=== PATIENT | male | born 1970 | race Caucasian/White ===

== ENCOUNTER 2016-02-24 15:38 | Inpatient (IN) | payer BC ==
[2016-02-24] MEDS ORDERED: LORazepam INJ* 2 MG/ML 1 ML VIAL ONE (16:23)
[2016-02-24] MEDS ORDERED: Succinylcholine* 20 MG/ML 10 ML VIAL ONE (16:23)
[2016-02-24] MEDS ORDERED: NS 0.9% 1000 ML* 1,000 ML IV ONE (16:38)
--- NOTE | 2016-02-24 17:11 | RAD ---
HISTORY: Unresponsive COMPARISONS: None TECHNIQUE: Multiple contiguous axial CT scans were obtained of the head without intravenous contrast. FINDINGS: The study is limited by patient motion artifact. HEMORRHAGE/INFARCT: There is no hemorrhage or acute infarct. MASSES/SHIFT: There is no mass or shift. EXTRA-AXIAL SPACES: There are no extra-axial fluid collections. SULCI AND VENTRICLES: The sulci and ventricles are normal in size and position for the patient's stated age. CEREBRUM: There are no focal parenchymal abnormalities. BRAINSTEM: There are no focal parenchymal abnormalities. CEREBELLUM: There are no focal parenchymal abnormalities. VESSELS: The vessels are grossly normal. PARANASAL SINUSES: The paranasal sinuses are clear. ORBITS: The orbits are unremarkable. BONES AND SOFT TISSUE: No bone or soft tissue abnormalities are noted. OTHER: An endotracheal tube is noted IMPRESSION: NO ACUTE INTRACRANIAL PATHOLOGY.
--- NOTE | 2016-02-24 17:12 | RAD ---
HISTORY: Response of COMPARISONS: None VIEWS:1: Single frontal portable view of the chest at 4:48 PM FINDINGS: LINES AND TUBES: The endotracheal tube is noted with the tip overlying the trachea just below the clavicles. A gastric tube is noted. The tip is below the [id number] of the current examination but is below the diaphragm. CARDIOMEDIASTINAL SILHOUETTE: The cardiomediastinal silhouette is normal for portable technique. PLEURA: The costophrenic angles are sharp. No pleural abnormalities are noted. LUNG PARENCHYMA: The lungs are clear. ABDOMEN: The upper abdomen is clear. There is no subphrenic gas. BONES AND SOFT TISSUES: No bone or soft tissue abnormalities are noted. IMPRESSION: LINES AND TUBES ABOVE. NO ACTIVE CARDIOPULMONARY DISEASE.
[2016-02-24 17:13] LABS: Comments Flag Yes; Hematocrit 28 % (42-52); Hemoglobin 9.6 g/dl (14.0-18.0); Mean Corpuscular HGB Conc 35 g/dl (31-36); Mean Corpuscular Hemoglobin 36 pg (27-31); Mean Corpuscular Volume 103 fL (80-94); Mean Platelet Volume 10 um3 (7.4-10.4); Red Cell Distribution Width 20 % (10.5-15); White Blood Count 6.5 10^3/ul (3.5-10.8)
[2016-02-24 17:14] LABS: Add Diff/Slide Review? Slide Review Added
[2016-02-24] MEDS ORDERED: Thiamine IV* 100 MG, Folic Acid IV* 1 MG, Multiple Vitamin IV ADULT* 10 ML in NS 0.9% 1... IV ONE (17:23)
[2016-02-24] MEDS ORDERED: Magnesium Sulfate 1 GM IV* 1 GM/100 ML BAG IV ONE (17:24)
[2016-02-24 17:30] LABS: ALT 40 U/L (7-52); AST 161 U/L (13-39); Albumin 2.8 g/dL (3.2-5.2); Alkaline Phosphatase 252 U/L (34-104); Anion Gap 8 mmol/L (2-11); BUN/Creatinine Ratio 34.6 (8-20); Blood Urea Nitrogen 18 mg/dL (6-24); CO2 Carbon Dioxide 23 mmol/L (22-32); Calcium 7.7 mg/dL (8.6-10.3); Chloride 106 mmol/L (101-111); Creatine Kinase 381 U/L (10-223); EGFR Non-African American 171.1 (>60); Glucose 131 mg/dL (70-100); Magnesium 1.8 mg/dL (1.9-2.7); Potassium 3.9 mmol/L (3.5-5.0); Sodium 137 mmol/L (133-145); Total Protein 6.8 g/dL (6.4-8.9)
[2016-02-24 17:37] LABS: Troponin I 0.05 ng/mL (<0.04)
[2016-02-24] MEDS ORDERED: Etomidate* 2 MG/ML 20 ML VIAL (40 MG) ONE (17:50)
[2016-02-24 18:05] LABS: FIO2 35; Resp Rate 12; Ventilator Volume 550
[2016-02-24 18:08] LABS: PCO2 Arterial 27 mmHg (35-45)
[2016-02-24 18:18] LABS: Urine Bacteria Absent (Absent); Urine Bilirubin Negative (Negative); Urine Glucose Negative (Negative); Urine Nitrite Negative (Negative)
[2016-02-24 18:23] LABS: Benzodiazepine Urine Screen None Detected (None Detect)
[2016-02-24 18:24] LABS: Acetaminophen < 15 mcg/mL; Alcohol 73 mg/dL (<10); Salicylate < 2.50 mg/dL (<30)
[2016-02-24 18:33] LABS: TSH (Thyroid Stimulating Horm) 1.68 mcIU/mL (0.34-5.60)
[2016-02-24] MEDS ORDERED: Iohexol 300* (CONTRAST) 10 ML SDV IV ONE (19:02)
[2016-02-24] MEDS ORDERED: Pantoprazole IV* 40 MG IV ONE (19:47)
--- NOTE | 2016-02-24 20:07 | RAD ---
CLINICAL HISTORY: Unconscious, anemia COMPARISON: None TECHNIQUE: Multiple contiguous axial CT scans were obtained of the abdomen and pelvis after the administration of intravenous contrast. Coronal and sagittal multiplanar reformations are submitted for review. Oral contrast was not administered. Delayed images were obtained through the abdomen FINDINGS: LUNG BASES: The lung bases are clear. LIVER: The liver is diffusely low in attenuation with a micronodular contour. The portal vein is patent. The splenic vein is dilated, with an enlarged tortuous lienorenal varices BILE DUCTS: There is no intrahepatic or extrahepatic biliary dilatation. GALLBLADDER: There is diffuse gallbladder wall thickening. PANCREAS: The pancreas is normal, without mass or ductal dilatation. SPLEEN: Normal in size and appearance. UPPER GI TRACT: Evaluation of the gastrointestinal tract is limited by incomplete gastric distention. A gastric tube is noted with the tip in the stomach. There are paraesophageal varices SMALL BOWEL AND MESENTERY: There is mild gaseous distention of the small bowel without dilatation. COLON: There is gaseous distention of the colon, without dilatation ADRENALS: Normal bilaterally. KIDNEYS: The kidneys are normal in shape, size, contour, and axis. There is no hydronephrosis or nephrolithiasis. BLADDER: The bladder is collapsed rounded [place] catheter. PELVIC ORGANS: The prostate gland is normal. The seminal vesicles are symmetric. AORTA: The aorta is normal. IVC: The IVC is unremarkable. LYMPH NODES: There is no lymphadenopathy by size criteria. ABDOMINAL WALL: There is no evidence for abdominal wall hernia. BONES AND SOFT TISSUES: Unremarkable OTHER: None IMPRESSION: 1. CIRRHOTIC LIVER WITH MULTIPLE VARICES CONSISTENT WITH PORTAL HYPERTENSION. 2. THERE IS GALLBLADDER WALL THICKENING WHICH MAY REFLECT HYPOPROTEINEMIA, OR REFLECT SECONDARY INFLAMMATION FROM HEPATIC INFLAMMATION, OR A PRIMARY INFLAMMATORY PROCESSES OF THE GALLBLADDER
--- NOTE | 2016-02-24 20:50 | ED ---
Gael Julio Aidan, scribed for Elias Weston MD on 02/24/16 at 1712 . 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 According to the patients mother, the patients son called her earlier today and reported that the patient was unresponsive. When his mother arrived at his house, she found him unresponsive near a pile of empty beer cans. The patient is a recovering alcoholic who relapsed in June and again today. According to the patients son, he was last well at midnight last night. Associated symptoms include nose bleeds, a large bruise on the right side of his trunk, and increased fatigue for the past several days, according to the patients mother. Dr. Weston is treating the patient with medication and preparing for intubation. - History of Current Complaint Stated Complaint: UNRESPONSIVE Time Seen by Provider: 02/24/16 16:15 Hx Obtained From: Family/Supervisor [employer] - Pt's mother and son Onset/Duration: Sudden Onset, Started minutes ago, Still Present - Pt is still seizing Timing: Intermittent Episodes Lasting: - episode of unresponsiveness and episode of seizure Onset Severity: Moderate Current Severity: Moderate Seizure Severity: Moderate Number of Seizures: 1 - while in the ED Neurological Deficit Location: Generalized Pain Intensity: 0 Pain Scale Used: 0-10 Numeric Character: Other: - no CAMPOS reported Syncope Timing: no syncope, episode of unresponsiveness Number of Episodes: 1 Frequency: Episodes x___ - 1 episode of seizure and 1 episode of unresponsiveness Seizure Character: Generalized Aggravating: Alcohol/Drug Ingestion - potentially aggravated by alcohol use, Pt is a recovering alcoholic who relapsed, Alcohol/Drug Withdrawal - recovering alcoholic who recently relapsed Alleviating: Unknown Associated Signs and Symptoms: Positive: Loss of Consciousness - unresponsive and likely unconscious, Seizure - while in the ED. Negative: Nothing - Pt has a large bruise on the right side of his trunk Related Hx: Alcohol/Drug Abuse - Additional Pertinent History Primary Care Physician: [id number] - Allergy/Home Medications Allergies/Adverse Reactions: Allergies Allergy/AdvReac Type Severity Reaction Status Date / Time No Known Allergies Allergy Verified 07/24/15 13:15 PMH/Surg Hx/FS Hx/Imm Hx GI History: Reports: Other GI Disorders - liver disease Sensory History: Reports: Hx Contacts or Glasses Opthamlomology History: Reports: Hx Contacts or Glasses Neurological History: Reports: Other Neuro Impairments/Disorders - Pt is an alcoholic Psychiatric History: Reports: Hx Anxiety, Hx Depression, Hx Inpatient Treatment , Hx Community Mental Health Tx Denies: Hx Attention Deficit Hyperactivity Disorder, Hx Eating Disorder, Hx Panic Disorder, Hx Post Traumatic Stress Disorder, Hx Schizophrenia, Hx Bipolar Disorder, Hx Suicide Attempt, Hx of Violent Episodes Against Others, Hx Substance Abuse - etoh abuse hx, Other Psychiatric Issues/Disorders - Immunization History Date of Tetanus Vaccine: 07/14 Date of Influenza Vaccine: None Infectious Disease History: Denies: Traveled Outside the [place] in Last 30 Days - Family History Known Family History: Negative: Cardiac Disease, Hypertension, Diabetes, Seizure Disorder - Social History Occupation: Employed Full-time Lives: With Family Alcohol Use: Daily Substance Use Type: Reports: None Substance Use Comment - Amount & Last Used: 10-12 beers/day for the past 5 to 6 mo., in-pt etoh treatment 2 yrs. prior Smoking Status (MU): Heavy Every Day Tobacco Smoker Amount Used/How Often: 1 pack per day Review of Systems Constitutional: Other - jaundice of the skin, blood in saliva Eyes: Negative ENT: Negative Cardiovascular: Negative Respiratory: Negative Gastrointestinal: Negative Genitourinary: Negative Musculoskeletal: Negative Skin: Negative Neurological: Other - unresponsive, episode of seizure, intoxication Psychological: Normal All Other Systems Reviewed And Are Negative: Yes Physical Exam Triage Information Reviewed: Yes Vital Signs On Initial Exam: Initial Vitals Pulse Resp Pulse Ox 124 19 99 02/24/16 18:04 02/24/16 18:04 02/24/16 18:04 Vital Signs Reviewed: Yes Appearance: Positive: No Pain Distress. Negative: Well-Appearing Skin: Positive: Warm, Dry. Negative: Skin Color Reflects Adequate Perfusion - jaundice of the skin Head/Face: Positive: Normal Head/Face Inspection Eyes: Positive: Normal, Other: - left pupil irregular both 5-6mm and poorly responsive, no reaction to challenging any visual field, sclera icteric. Negative: EOMI - no reaction to challenging any visual field, RY - left pupil irregular, eyes poorly responsive ENT: Positive: Normal ENT inspection, Other - blood mixed with saliva in drool, Pt is drooling Neck: Positive: Supple, Nontender Respiratory/Lung Sounds: Positive: Clear to Auscultation, Breath Sounds Present Cardiovascular: Negative: RRR - sinus tachycardia, otherwise normal Abdomen Description: Positive: Nontender, Soft, Distended - mildly distended Bowel Sounds: Positive: Present Musculoskeletal: Positive: Normal Neurological: Positive: Normal, CN Intact II-III, Other - Pt is unresponsive, has Juvenal coma scale of 3, incontinent, exhibits extensor posturing to noxious stimuli. Negative: Sensory/Motor Intact, Alert, Oriented to Person Place, Time - Pt is unresponsive, Reflexes Intact Psychiatric: Positive: Normal. Negative: Affect/Mood Appropriate - Pt was seizing and unresponsive Diagnostics - Vital Signs Vital Signs Pulse Resp Pulse Ox 02/24/16 18:04 124 19 99 - Laboratory Lab Results: Lab Results 02/24/16 02/24/16 02/24/16 Range/Units 16:17 16:17 16:19 WBC 6.5 (3.5-10.8) 10^3/ul RBC 2.70 L (4.0-5.4) 10^6/ul Hgb 9.6 L (14.0-18.0) g/dl Hct 28 L (42-52) % MCV 103 H (80-94) fL MCH 36 H (27-31) pg MCHC 35 (31-36) g/dl RDW 20 H (10.5-15) % Plt Count 34 L (150-450) 10^3/ul MPV 10 (7.4-10.4) um3 Neut % (Auto) 80.1 (38-83) % Lymph % (Auto) 10.4 L (25-47) % [place] % (Auto) 8.3 (1-9) % Eos % (Auto) 0.1 (0-6) % Baso % (Auto) 1.1 (0-2) % Absolute Neuts (auto) 5.2 (1.5-7.7) 10^3/ul Absolute Lymphs (auto) 0.7 L (1.0-4.8) 10^3/ul Absolute Monos (auto) 0.5 (0-0.8) 10^3/ul Absolute Eos (auto) 0 (0-0.6) 10^3/ul Absolute Basos (auto) 0.1 (0-0.2) 10^3/ul Absolute Nucleated RBC 0 10^3/ul Nucleated RBC % 0.1 INR (Anticoag Therapy) (0.89-1.11) Patient Temperature ABG pH (7.35-7.45) ABG pCO2 (35-45) mmHg ABG pO2 (80-100) mmHg ABG HCO3 (19-31) mmol/L ABG O2 Saturation (95-98) % ABG Base Excess (-2.0-2.0) Respiration Rate Ventilator Type Vent Mode FiO2 Inspiratory Time PEEP Pressure Support Pressure Control EPAP IPAP BiPAP Sodium (133-145) mmol/L Potassium (3.5-5.0) mmol/L Chloride (101-111) mmol/L Carbon Dioxide (22-32) mmol/L Anion Gap (2-11) mmol/L BUN (6-24) mg/dL Creatinine (0.67-1.17) mg/dL Est GFR ( Amer) (>60) Est GFR (Non-Af Amer) (>60) BUN/Creatinine Ratio (8-20) Glucose (70-100) mg/dL Lactic Acid (0.5-2.0) mmol/L Calcium (8.6-10.3) mg/dL Magnesium (1.9-2.7) mg/dL Total Bilirubin (0.2-1.0) mg/dL AST (13-39) U/L ALT (7-52) U/L Alkaline Phosphatase (34-104) U/L Ammonia (16-53) mol/L Total Creatine Kinase (10-223) U/L Troponin I (<0.04) ng/mL Total Protein (6.4-8.9) g/dL Albumin (3.2-5.2) g/dL Globulin (2-4) g/dL Albumin/Globulin Ratio (1-3) TSH (0.34-5.60) mcIU/mL Urine Color Yellow Urine Appearance Clear Urine pH 8.0 (5-9) Ur Specific Romeo 1.018 (1.010-1.030) Urine Protein Negative (Negative) Urine Ketones Trace H (Negative) Urine Blood 1+ H (Negative) Urine Nitrate Negative (Negative) Urine Bilirubin Negative (Negative) Urine Urobilinogen Negative (Negative) Ur Leukocyte Esterase Negative (Negative) Urine WBC (Auto) Absent (Absent) Urine RBC (Auto) 1+(3-5/hpf) H (Absent) Urine Bacteria Absent (Absent) Urine Glucose Negative (Negative) Salicylates (<30) mg/dL Urine Opiates Screen None detected (None Detect) Acetaminophen mcg/mL Ur Barbiturates Screen None detected (None Detect) Ur Phencyclidine Scrn None detected (None Detect) Ur Amphetamines Screen None detected (None Detect) U Benzodiazepines Scrn None detected (None Detect) Urine Cocaine Screen None detected (None Detect) U Cannabinoids Screen None detected (None Detect) Serum Alcohol (<10) mg/dL 02/24/16 02/24/16 02/24/16 Range/Units 16:19 16:19 16:19 WBC (3.5-10.8) 10^3/ul RBC (4.0-5.4) 10^6/ul Hgb (14.0-18.0) g/dl Hct (42-52) % MCV (80-94) fL MCH (27-31) pg MCHC (31-36) g/dl RDW (10.5-15) % Plt Count (150-450) 10^3/ul MPV (7.4-10.4) um3 Neut % (Auto) (38-83) % Lymph % (Auto) (25-47) % [place] % (Auto) (1-9) % Eos % (Auto) (0-6) % Baso % (Auto) (0-2) % Absolute Neuts (auto) (1.5-7.7) 10^3/ul Absolute Lymphs (auto) (1.0-4.8) 10^3/ul Absolute Monos (auto) (0-0.8) 10^3/ul Absolute Eos (auto) (0-0.6) 10^3/ul Absolute Basos (auto) (0-0.2) 10^3/ul Absolute Nucleated RBC 10^3/ul Nucleated RBC % INR (Anticoag Therapy) 1.42 H (0.89-1.11) Patient Temperature ABG pH (7.35-7.45) ABG pCO2 (35-45) mmHg ABG pO2 (80-100) mmHg ABG HCO3 (19-31) mmol/L ABG O2 Saturation (95-98) % ABG Base Excess (-2.0-2.0) Respiration Rate Ventilator Type Vent Mode FiO2 Inspiratory Time PEEP Pressure Support Pressure Control EPAP IPAP BiPAP Sodium 137 (133-145) mmol/L Potassium 3.9 (3.5-5.0) mmol/L Chloride 106 (101-111) mmol/L Carbon Dioxide 23 (22-32) mmol/L Anion Gap 8 (2-11) mmol/L BUN 18 (6-24) mg/dL Creatinine 0.52 L (0.67-1.17) mg/dL Est GFR ( Amer) 220.0 (>60) Est GFR (Non-Af Amer) 171.1 (>60) BUN/Creatinine Ratio 34.6 H (8-20) Glucose 131 H (70-100) mg/dL Lactic Acid (0.5-2.0) mmol/L Calcium 7.7 L (8.6-10.3) mg/dL Magnesium 1.8 L (1.9-2.7) mg/dL Total Bilirubin 9.20 H (0.2-1.0) mg/dL AST 161 H (13-39) U/L ALT 40 (7-52) U/L Alkaline Phosphatase 252 H (34-104) U/L Ammonia 206 H (16-53) mol/L Total Creatine Kinase 381 H (10-223) U/L Troponin I 0.05 H* (<0.04) ng/mL Total Protein 6.8 (6.4-8.9) g/dL Albumin 2.8 L (3.2-5.2) g/dL Globulin 4.0 (2-4) g/dL Albumin/Globulin Ratio 0.7 L (1-3) TSH 1.68 (0.34-5.60) mcIU/mL Urine Color Urine Appearance Urine pH (5-9) Ur Specific Romeo (1.010-1.030) Urine Protein (Negative) Urine Ketones (Negative) Urine Blood (Negative) Urine Nitrate (Negative) Urine Bilirubin (Negative) Urine Urobilinogen (Negative) Ur Leukocyte Esterase (Negative) Urine WBC (Auto) (Absent) Urine RBC (Auto) (Absent) Urine Bacteria (Absent) Urine Glucose (Negative) Salicylates < 2.50 (<30) mg/dL Urine Opiates Screen (None Detect) Acetaminophen < 15 mcg/mL Ur Barbiturates Screen (None Detect) Ur Phencyclidine Scrn (None Detect) Ur Amphetamines Screen (None Detect) U Benzodiazepines Scrn (None Detect) Urine Cocaine Screen (None Detect) U Cannabinoids Screen (None Detect) Serum Alcohol 73 H (<10) mg/dL 02/24/16 02/24/16 Range/Units 16:19 18:00 WBC (3.5-10.8) 10^3/ul RBC (4.0-5.4) 10^6/ul Hgb (14.0-18.0) g/dl Hct (42-52) % MCV (80-94) fL MCH (27-31) pg MCHC (31-36) g/dl RDW (10.5-15) % Plt Count (150-450) 10^3/ul MPV (7.4-10.4) um3 Neut % (Auto) (38-83) % Lymph % (Auto) (25-47) % [place] % (Auto) (1-9) % Eos % (Auto) (0-6) % Baso % (Auto) (0-2) % Absolute Neuts (auto) (1.5-7.7) 10^3/ul Absolute Lymphs (auto) (1.0-4.8) 10^3/ul Absolute Monos (auto) (0-0.8) 10^3/ul Absolute Eos (auto) (0-0.6) 10^3/ul Absolute Basos (auto) (0-0.2) 10^3/ul Absolute Nucleated RBC 10^3/ul Nucleated RBC % INR (Anticoag Therapy) (0.89-1.11) Patient Temperature Not Reportable ABG pH 7.53 H (7.35-7.45) ABG pCO2 27 L (35-45) mmHg ABG pO2 148 H (80-100) mmHg ABG HCO3 25.3 (19-31) mmol/L ABG O2 Saturation 100.3 H (95-98) % ABG Base Excess 0.4 (-2.0-2.0) Respiration Rate 12 Ventilator Type 550 Vent Mode Cmv FiO2 35 Inspiratory Time 1.0 PEEP 5 Pressure Support Not Reportable Pressure Control Not Reportable EPAP Not Reportable IPAP Not Reportable BiPAP Not Reportable Sodium (133-145) mmol/L Potassium (3.5-5.0) mmol/L Chloride (101-111) mmol/L Carbon Dioxide (22-32) mmol/L Anion Gap (2-11) mmol/L BUN (6-24) mg/dL Creatinine (0.67-1.17) mg/dL Est GFR ( Amer) (>60) Est GFR (Non-Af Amer) (>60) BUN/Creatinine Ratio (8-20) Glucose (70-100) mg/dL Lactic Acid 1.7 (0.5-2.0) mmol/L Calcium (8.6-10.3) mg/dL Magnesium (1.9-2.7) mg/dL Total Bilirubin (0.2-1.0) mg/dL AST (13-39) U/L ALT (7-52) U/L Alkaline Phosphatase (34-104) U/L Ammonia (16-53) mol/L Total Creatine Kinase (10-223) U/L Troponin I (<0.04) ng/mL Total Protein (6.4-8.9) g/dL Albumin (3.2-5.2) g/dL Globulin (2-4) g/dL Albumin/Globulin Ratio (1-3) TSH (0.34-5.60) mcIU/mL Urine Color Urine Appearance Urine pH (5-9) Ur Specific Romeo (1.010-1.030) Urine Protein (Negative) Urine Ketones (Negative) Urine Blood (Negative) Urine Nitrate (Negative) Urine Bilirubin (Negative) Urine Urobilinogen (Negative) Ur Leukocyte Esterase (Negative) Urine WBC (Auto) (Absent) Urine RBC (Auto) (Absent) Urine Bacteria (Absent) Urine Glucose (Negative) Salicylates (<30) mg/dL Urine Opiates Screen (None Detect) Acetaminophen mcg/mL Ur Barbiturates Screen (None Detect) Ur Phencyclidine Scrn (None Detect) Ur Amphetamines Screen (None Detect) U Benzodiazepines Scrn (None Detect) Urine Cocaine Screen (None Detect) U Cannabinoids Screen (None Detect) Serum Alcohol (<10) mg/dL Result Diagrams: 02/24/16 16:19 02/24/16 16:19 Lab Statement: Any lab studies that have been ordered have been reviewed, and results considered in the medical decision making process. - Radiology CHEST XR Xray Interpretation: No Acute Changes - FINDINGS: LINES AND TUBES: The endotracheal tube is noted with the tip overlying the trachea just below the clavicles. A gastric tube is noted. The tip is below the [id number] of the current examination but is below the diaphragm. CARDIOMEDIASTINAL SILHOUETTE: The cardiomediastinal silhouette is normal for portable technique. PLEURA: The costophrenic angles are sharp. No pleural abnormalities are noted. LUNG PARENCHYMA: The lungs are clear. ABDOMEN: The upper abdomen is clear. There is no subphrenic gas. BONES AND SOFT TISSUES: No bone or soft tissue abnormalities are noted. IMPRESSION: LINES AND TUBES ABOVE. NO ACTIVE CARDIOPULMONARY DISEASE. 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 He is a recovering alcoholic who relapsed. On initial evaluation, it was difficult to tell whether the patient was seizing or comatose. His eyes travelled conjugately back and forth horizontally with nystagmus each way. He had no reaction to visual field confrontation. Intermittently to noxious stimuli he seemed to decerebrate. His GCS was a 4 and I intubated him. He was very clamped down and I was unable to intubate without paralytics. His labs revealed a worening anemia and encephaopathy. His DANIELE was elevated. He was treated with thiamine, lactulose, fluids and admitted to the ICU. - Diagnoses Provider Diagnoses: Coma, Anemia, Encephalopathy - Physician Notifications Discussed Care of Patient With: Dr. Dumas Instructed by Provider To: Will See In ED - Critical Care Time Critical Care Time: 30-74 min Discharge - Discharge Plan Condition: Critical Disposition: ADMITTED TO [facility] documentation as recorded by the Gael dutton Aidan accurately reflects the service I personally performed and the decisions made by , Elias Weston MD.
[2016-02-24] MEDS: Propofol* 100 ML IV SCH (21:16)
[2016-02-24] MEDS: Pantoprazole IV* 80 MG in NS 0.9% 250 ML* 250 ML IVPB SCH (21:17)
[2016-02-24] MEDS: methylPREDNISolone 125 MG* 2 ML VIAL IV SCH (21:18)
[2016-02-24 22:21] LABS: FIO2 25; PCO2 Arterial 27 mmHg (35-45); Resp Rate 12; Ventilator Volume 550
[2016-02-24 22:24] LABS: Hematocrit 25 % (42-52)
[2016-02-24 22:27] LABS: Comments Flag Yes
--- NOTE | 2016-02-24 22:38 | HP ---
ADMISSION HISTORY AND PHYSICAL: DATE OF ADMISSION: 02/24/16 PRIMARY CARE PROVIDER: Garry Navas MD CONSULTING NEUROLOGIST: Willy Glass MD ADMITTING PROVIDER: TRENT Case SUPERVISING PHYSICIAN AND ATTENDING: Sancho Hickey DO* (report dictated by TRENT Case). CHIEF COMPLAINT: Unresponsiveness. HISTORY OF PRESENT ILLNESS: This is a 45-year-old gentleman with a well known history of alcohol abuse who was brought by ambulance after his family found him unresponsive earlier today. The patient had dinner with his mother and son last evening and was last seen normal at approximately midnight. His son noted him sleeping for the majority of the day and then tried to wake him up early afternoon and when he would not awaken, EMS was contacted. The patient has a well known history of alcoholism, but generally keeps the amount that he is drinking secret from his family. His son does not live with him, but was staying with him for the and is unsure of what his recent habits have been. He seemed to be in good spirit last night and ate a full meal without any complaints of acute symptoms. Of note, the patient ran out of his gabapentin a couple of days ago and his mother picked up a new prescription for him today, but he did not start it obviously and he was prescribed lactulose several months ago, but this prescription has not been renewed in the last 2 to 3 months or so. The patient has gone through multiple rehab attempts. He has never required intubation or ICU stay with prior withdrawal attempts. He was last admitted here approximately 6 months ago with a request for detox, which completed on the medical floor without evidence of seizure. The patient was found to be unresponsive upon reaching the emergency department and was not responding to noxious stimuli . There was concern of some abnormal posturing and the patient was intubated to protect his airway. PAST MEDICAL HISTORY: 1. Alcohol abuse. 2. Anxiety. PAST SURGICAL HISTORY: Vein surgery. HOME MEDICATIONS: Gabapentin 300 mg p.o. t.i.d. SOCIAL HISTORY: The patient lives alone. 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 History of heavy abuse alcohol abuse. REVIEW OF SYSTEMS: Unable to obtain. PHYSICAL EXAMINATION GENERAL: This is a middle-aged intubated male, who is obviously jaundiced and not responding to any stimuli. He is accompanied by his mother and son. VITAL SIGNS: Temperature 99.6 degrees Fahrenheit, pulse 147 beats per minute, blood pressure 142/92 mmHg, respiratory rate 19 per minute, oxygen saturation 99 %. HEENT: He has a significant amount of red blood in his mouth, which appears to be coming from his tongue, which he has been biting on. The patient has significant scleral icterus. RESPIRATORY: Normal work of breathing and lungs are clear to auscultation. CARDIOVASCULAR: Heart has a regular rate and rhythm without murmurs, rubs or gallops. ABDOMEN: Abdomen is soft with bowel sounds present, appears mildly distended, however. SKIN: There is a small amount of ecchymosis appreciated over the right flank region. NEURO: The patient has significantly increased muscle tone and is noted to be hyperreflexic. He has positive asterixis. Positive Babinski sign with dorsal flexion of the toe. Upon examination of his eyes, he has dilated pupils that are minimally responsive to light and his eyes seemed to be in rhythmic lateral tracking pattern from side to side, but is at a rate of approximately 60 beats per minute. The patient otherwise is not responsive to any verbal or noxious stimuli. LABORATORY EVALUATION: White blood cell count is normal at 6,500, hemoglobin 9.6 g/dL, compared this to last labs from July of this year where his hemoglobin was 14 g/dL, platelet counts of 34,000, last measured at 100,000 again in July of this year. INR of 1.42. Comprehensive metabolic panel shows normal sodium of 137 mmol/L, potassium is normal at 3.9 mmol/L. BUN and creatinine are both normal at 18 and 0.52 respectively with an estimated GFR of 171. Random glucose 131 g/dL. Calcium is low at 7.7, magnesium low at 1.8, total bilirubin high at 9.2. AST 161, ALT 40, alk phos 252. Ammonia elevated at 206. Total creatine kinase elevated at 381. Troponin elevated at 0.05. TSH is normal at 1.68. Urinalysis is positive for 1+ blood, but otherwise unremarkable. Urine toxicology is negative with the exception of alcohol measured at 73 mg/dL. ABG measured approximately 2 hours after intubation shows a pH of 7.53, pCO2 of 27, pO2 of 48, bicarb 25. IMAGIN. Chest x-ray shows good position of ET tube. No acute pathology appreciated. 2. EKG shows a normal sinus rhythm. 3. CT of the brain shows no acute process. 4. CT of the abdomen and pelvis has been completed and official read is pending at this time. ASSESSMENT AND PLAN: This is a 45-year-old gentleman with a known history of alcohol abuse who presents unresponsive. He is currently intubated and will be admitted to the ICU for further evaluation. 1. Acute encephalopathy: The patient is not responsive to any stimuli at this time. Exact etiology of this is not entirely clear. The most likely of course would be hepatic encephalopathy. Ammonia is measured at greater than 200. Also of concern would be status epilepticus. The patient has no obvious signs of seizing at this moment, but he did recently ran out of his gabapentin and alcohol levels are noted to be low but high enough that there is evidence that he was drinking within the last 12 hours or so. He has had a rapid decline in status as his family reports him as normal within 12 hours or so of presentation. Discussed the case with Dr. Glass. We will plan on an EEG to evaluate for seizure activity. Following completion of the EEG, we will initiate a propofol drip. This will either treat this status epilepticus or help to prevent seizure in the event that he begins withdrawing. Otherwise, we will work to bring down serial ammonia levels via use of lactulose. An NG tube is in place at this time and can be utilized for such. Also, of note, the patient is anemic when compared to last labs. He is normotensive or slightly hypertensive, which may be due to the alcohol withdrawal, but certainly not indicative of a hypovolemic state. He does have some ecchymosis over the right flank region. A CT of the abdomen and pelvis was performed in order to evaluate for intraabdominal bleeding. Final results of these are pending at this time, but per personal review, it does not appear to have any significant amount of blood in the retroperitoneal space, which would be expected based on the location of his ecchymosis. Also, check a stool for blood as the GI bleed also be a possibility that may have contributed to his encephalopathic state. Empirically start a Protonix drip while waiting on these results. Again, he does appear stable. There is no evidence of variceal bleeding that would indicate the need for emergent intervention. There is no evidence of this being infectious in nature. He is afebrile without leukocytosis or bandemia. Urinalysis and chest x-ray show no evidence of acute infection. Blood cultures were gathered and are pending at this time, but we do not see an indication to treat with empiric antibiotics at this time. 2. Intubated state: The patient was intubated prophylactically in the emergency department in order to protect his airway. He appears to be overbreathing the ventilator at this time. After completion of EEG, we will initiate sedation with propofol. This will help to reduce his respiratory rates and tidal volume. He does have a noted respiratory alkalosis based on his most recent ABG. We will plan on repeating blood gases in several hours to reassess this. 3. Elevated troponin: Anticipate this is demand related. We will plan on trending his troponins, but there is no evidence of acute coronary syndrome. 4. Alcoholic hepatitis: The patient appears to be acutely decompensated. INR is elevated at 1.42. Last measured approximately 6 months ago and this was actually similar in nature. His total bilirubin is quite elevated at 9.2. Again when compared to 6 months ago, this is more than doubled. We will plan to treat with corticosteroid at this time assuming that he will be able to recover some hepatic function. Platelet count is also significantly low measured at less than 50,000, currently at 34,000. We will continue to monitor his hepatic function closely. 5. Hypomagnesemia: This has been replaced IV in the emergency department. We will plan on rechecking labs. 6. Hypocalcemia: Corrected values are near normal. 7. Healthcare proxy is listed as his mother, Radha Guzman. Her home phone number is [phone] and this is reportedly the best number to reach her. 8. DVT prophylaxis. Due to thrombocytopenia and any chemical prophylaxis is contraindicated at this time. 9. Code status: The patient is full code. DISPOSITION: This 45-year-old male is being admitted to ICU and is currently intubated. The plan has been reviewed with senior compensation analyst, Dr. Hickey. TRENT CASE CC: Garry Navas MD* [id number]/[facility] #: [id number] [facility] CENTERScarlet
[2016-02-25] MEDS: Propofol* 100 ML IV SCH ×3 (01:34→20:03)
[2016-02-25 05:16] LABS: Comments Flag Yes; Hematocrit 25 % (42-52); Hemoglobin 8.5 g/dl (14.0-18.0); Mean Corpuscular HGB Conc 34 g/dl (31-36); Mean Corpuscular Hemoglobin 35 pg (27-31); Mean Corpuscular Volume 102 fL (80-94); Mean Platelet Volume 10 um3 (7.4-10.4); Red Blood Count 2.43 10^6/ul (4.0-5.4); Red Cell Distribution Width 21 % (10.5-15); White Blood Count 5.5 10^3/ul (3.5-10.8)
[2016-02-25 05:27] LABS: BUN/Creatinine Ratio 29.7 (8-20); Calcium 7.6 mg/dL (8.6-10.3); EGFR African American 173.1 (>60); EGFR Non-African American 134.6 (>60); Potassium 3.4 mmol/L (3.5-5.0)
[2016-02-25] MEDS: Pantoprazole IV* 80 MG in NS 0.9% 250 ML* 250 ML IVPB SCH ×2 (05:51→15:19)
[2016-02-25] MEDS: methylPREDNISolone 125 MG* 2 ML VIAL IV SCH ×2 (07:59→21:00)
--- NOTE | 2016-02-25 09:40 | EEG ---
ELECTROENCEPHALOGRAPHY: DATE: 02/25/2016. PATIENT OF: TRENT Milligan CLINICAL PROBLEM: This is a 45-year-old man being evaluated for coma with severe liver failure. Of note, the patient has been on propofol during the tracing. Medications include steroids, lactulose, and Protonix. REPORT: With patient on propofol, background cerebral activity consists of extremely low amplitude delta activity. The propofol is turned off during this tracing and there is some low to moderate amplitude delta activity noted during a portion of this tracing. No epileptiform potentials or focal abnormalities are present. CLINICAL IMPRESSION: This EEG shows severe attenuation and slowing consistent with being on propofol. [id number]/[facility] #: [id number] [facility]
[2016-02-25 11:21] LABS: Total Bilirubin 8.3 mg/dL (0.2-1.0)
--- NOTE | 2016-02-25 14:53 | PN ---
Critical Care Services: Patient with probable hepatic encephalopathy remains unresponsive, on lactulose. Vital Signs: Temp Pulse Resp BP SpO2 FiO2 100.7 F 91 14 109/54 95 25 Physical Exam: Gen:Unresponsive HEENT:pupils midposition and reactive Lungs:clear Abdomen: Not distended Extremities:No cyanosis or edema. Neuro:No asterixis Fluid Balance (Past 24 Hours): Intake & Output 02/25/16 06:59 Intake Total 993 Output Total 1325 Balance -332 Weight 157 lb 10.1 oz Intake: IV Fluids 641 LR 641 Medicated IV 352 CC - Propofol/Diprivan 143 GEN - Pantoprazole/ 209 Protonix Oral Output: [place] 1325 Suctioning Labs: Laboratory Results - last 24 hr 02/25/16 02/25/16 02:00 05:00 BiPAP Sodium 140 Potassium 3.4 L Chloride 112 H Carbon Dioxide 22 Anion Gap 6 BUN 19 Creatinine 0.64 L Est GFR ( Amer) 173.1 Est GFR (Non-Af Amer) 134.6 BUN/Creatinine Ratio 29.7 H Glucose 181 H Calcium 7.6 L Total Bilirubin 8.30 H AST 160 H ALT 37 Alkaline Phosphatase 186 H Ammonia 159H Troponin I 0.09 H* 02/25/16 05:00 WBC 5.5 RBC 2.43 L Hgb 8.5 L Hct 25 L MCV 102 H MCH 35 H MCHC 34 RDW 21 H Plt Count 31 L MPV 10 Neut % (Auto) 93.8 H Lymph % (Auto) 3.8 L Yancey % (Auto) 1.9 Eos % (Auto) 0 Baso % (Auto) 0.5 Absolute Neuts (auto) 5.2 Absolute Lymphs (auto) 0.2 L Absolute Monos (auto) 0.1 Absolute Eos (auto) 0 Absolute Basos (auto) 0 Absolute Nucleated RBC 0.01 Nucleated RBC % 0.1 INR (Anticoag Therapy) 1.50H Studies: None Nutrition: None Impression: 1. Cirrhosis with hepatic encephalopathy. 2. Thrombocytopenia 3. Macrocytic anemia Plan: Add rifaximin to lactulose for Rx encephalopathy. Monitor serum ammonia levels. Patient's mother in the room and informed of present condition (and prognosis). Critical Care Time: 45 minutes
[2016-02-25] MEDS ORDERED: RiFAXimin* 550 MG TAB PO SCH (21:00)
[2016-02-25] MEDS: RiFAXimin* 550 MG TAB PO SCH (21:01)
[2016-02-26] MEDS: Pantoprazole IV* 80 MG in NS 0.9% 250 ML* 250 ML IVPB SCH ×3 (01:08→22:38)
[2016-02-26] MEDS: Propofol* 100 ML IV SCH ×2 (01:24→07:49)
[2016-02-26 05:13] LABS: Hematocrit 24 % (42-52); Hemoglobin 8.1 g/dl (14.0-18.0); Mean Corpuscular HGB Conc 35 g/dl (31-36); Mean Corpuscular Hemoglobin 36 pg (27-31); Mean Corpuscular Volume 104 fL (80-94); Mean Platelet Volume 11 um3 (7.4-10.4); Red Blood Count 2.26 10^6/ul (4.0-5.4); Red Cell Distribution Width 21 % (10.5-15); White Blood Count 8.2 10^3/ul (3.5-10.8)
[2016-02-26 05:16] LABS: Comments Flag Yes
[2016-02-26 05:24] LABS: Albumin 2.3 g/dL (3.2-5.2); BUN/Creatinine Ratio 34.4 (8-20); Calcium 7.5 mg/dL (8.6-10.3); EGFR African American 173.1 (>60); EGFR Non-African American 134.6 (>60); Globulin 3.5 g/dL (2-4); Potassium 3.2 mmol/L (3.5-5.0); Total Bilirubin 6.6 mg/dL (0.2-1.0); Total Protein 5.8 g/dL (6.4-8.9)
[2016-02-26] MEDS: RiFAXimin* 550 MG TAB PO SCH ×2 (07:49→21:24)
[2016-02-26] MEDS: methylPREDNISolone 125 MG* 2 ML VIAL IV SCH (07:49)
[2016-02-26] MEDS ORDERED: Phytonadione INJ (Adult)* 10 MG in NS 0.9% 50 ML* 50 ML IV ONE (09:00)
--- NOTE | 2016-02-26 09:18 | PN ---
Critical Care Services: Clinical condition unchanged over past 24 hrs, but serum ammonia down from 206 to 136. Vital Signs: Temp Pulse Resp BP SpO2 FiO2 100.3 F 88 16 120/53 95 25 Physical Exam: Gen:Unresponsive (on propofol) HEENT:Pupils reactive Lungs:No adventitious sounds Abdomen:Not distended. Extremities:No cyanosis or edema Fluid Balance (Past 24 Hours): 02/26/16 06:59 Intake Total 2688 Output Total 1675 Balance 1013 Weight Intake: IV Fluids 1728 LR 1728 Medicated IV 960 CC - Propofol/Diprivan 382 GEN - Pantoprazole/ 578 Protonix Oral 0 Output: NG Tube Drainage Amount 100 Machuca 1300 Suctioning 275 Labs: 02/26/16 04:55 WBC 8.2 Hgb 8.1 L Hct 24 L MCV 104 H Plt Count 41 L INR (Anticoag Therapy) 1.69 Ammonia 136 02/26/16 04:55 Sodium 141 Potassium 3.2 L Chloride 113 H Carbon Dioxide 22 BUN 22 Creatinine 0.64 Glucose 148 H Calcium 7.5 L Total Bilirubin 6.60 AST 143 H ALT 36 Alkaline Phosphatase 141 H Total Protein 5.8 L Albumin 2.3 L Studies: None today Nutrition: None Impression: Hepatic encephalopathy - plasma ammonia decreasing on lactulose and rifaximin. Borderline fever but no evidence of infection. Plan: 1. Start nutrition today (tube feedings) 2. Give vitamin K to help correct INR. 3. If temp > 100.4, then do appropriate cultures and start empiric antibiotics. Critical Care Time: 35 minutes
[2016-02-26] MEDS: KCL 20 MEQ/100 ML IVPREMIX* 20 MEQ/100 ML BAG IV SCH ×2 (09:34→10:50)
[2016-02-27 05:00] LABS: Hematocrit 26 % (42-52); Hemoglobin 8.8 g/dl (14.0-18.0); Mean Corpuscular HGB Conc 34 g/dl (31-36); Mean Corpuscular Hemoglobin 36 pg (27-31); Mean Corpuscular Volume 106 fL (80-94); Mean Platelet Volume 10 um3 (7.4-10.4); Red Blood Count 2.42 10^6/ul (4.0-5.4); Red Cell Distribution Width 21 % (10.5-15)
[2016-02-27 05:02] LABS: Comments Flag Yes
[2016-02-27 05:11] LABS: Albumin 2.5 g/dL (3.2-5.2); BUN/Creatinine Ratio 27.7 (8-20); Calcium 7.5 mg/dL (8.6-10.3); EGFR African American 170.1 (>60); EGFR Non-African American 132.2 (>60); Globulin 3.7 g/dL (2-4); Potassium 3.2 mmol/L (3.5-5.0); Total Bilirubin 7.9 mg/dL (0.2-1.0); Total Protein 6.2 g/dL (6.4-8.9)
[2016-02-27] MEDS: RiFAXimin* 550 MG TAB PO SCH ×2 (07:59→20:27)
[2016-02-27] MEDS: Famotidine TAB* 20 MG SCH ×2 (08:00→20:27)
[2016-02-27 09:14] LABS: Phosphorus 2.2 mg/dL (2.5-5.0)
--- NOTE | 2016-02-27 09:25 | RAD ---
Indication: Unresponsive. Assess for pneumonia. Comparison: February 24, [address] and chest radiograph. Technique: Upright AP 0840 hours Report: Endotracheal tube tip 3.3 cm above the Georgette. Nasogastric tube passes to the stomach and outside the [id number] caudally. RIGHT upper extremity PICC tip at level of superior vena cava RIGHT atrial junction. Relative low lung volumes for this patient compared with the prior exam with associated mild crowding of the pulmonary markings. Clear lungs and pleural spaces. Negative for pneumothorax. IMPRESSION: No evidence for pneumonia.
[2016-02-27] MEDS: Enoxaparin(*) 40 MG/0.4 ML SYR SUBCUT SCH (09:52)
[2016-02-27] MEDS ORDERED: Potassium Phosphate IV* 10 MMOLE in NS 0.9% 250 ML* 250 ML IVPB ONE (10:46)
--- NOTE | 2016-02-27 11:03 | PN ---
Critical Care Services: Off sedation yesterday and remained unresponsive - last night developed agitation and tachycardia (? ETOH withdrawal), so laced back on sedation. Vital Signs: Temp Pulse Resp BP SpO2 FiO2 100.8 F 113 18 143/71 95 25 Physical Exam: Gen:Unresponsive (on propofol) HEENT:Pupils reactive Lungs:Coarse rhonchi bilaterally Abdomen:Not distended Extremities:No cyanosis. 1+edema Neuro:No asterixis Fluid Balance (Past 24 Hours): 02/27/16 06:59 Intake Total 3485 Output Total 1550 Balance +1935 Weight 165 lb Intake: IV Fluids 1745 LR 1745 Medicated IV 828.1 CC - Propofol/Diprivan 98.1 GEN - Pantoprazole/ 730 Protonix Oral 550 Tube Feeding 342 Tube Feeding Flush Amount 20 Output: NG Tube Drainage Amount [place] 1400 Suctioning 150 Labs: 02/27/16 02/27/16 04:30 04:30 WBC 11.0 Hgb 8.8 Hct 26 L MCV 106 H Plt Count 49 L INR (Anticoag Therapy) 1.52 Sodium 142 Potassium 3.2 Chloride 114 H Carbon Dioxide 21 Anion Gap 7 BUN 18 Creatinine 0.65 Glucose 104 Calcium 7.5 L Phosphorus 2.2 L Total Bilirubin 7.90 H AST 136 H ALT 45 Alkaline Phosphatase 159 H Ammonia 83H Total Protein 6.2 L Albumin 2.5 L Studies: CXR - No infiltrates Nutrition: Tube feedings with Jevity 1.2 Impression: Fever and tachycardia - ? ETOH withdrawal vs sepsis. CXR shows no pneumonia. Hepatic insufficiency is improving, but patient is not waking up. Plan: 1. Blood cultures. Start empiric antibiotics if fever continues. 2. Consider neuro consult if patient does not awaken (? does he need an MRI) 3. Treat agitation with benzos or propofol. 4. Replace K as KPhos 5. D/C IV fluids Critical Care Time:45 minutes
[2016-02-27] MEDS: Thiamine IV* 100 MG/ML 2 ML VIAL IV SCH (11:16)
[2016-02-27] MEDS: Folic Acid IV* 1 MG/0.2 ML SYRINGE IV SCH (11:50)
[2016-02-27] MEDS ORDERED: Piperac/Tazob 3.375 gm in NS* 3.375 GM/100 ML BAG IVPB ONE (17:00)
[2016-02-27] MEDS: Propofol* 100 ML IV SCH (18:05)
[2016-02-27] MEDS: Piperac/Tazob 3.375 gm in NS* 3.375 GM/100 ML BAG IVPB SCH (20:30)
[2016-02-28] MEDS: Propofol* 100 ML IV SCH ×3 (03:09→18:15)
[2016-02-28] MEDS: Piperac/Tazob 3.375 gm in NS* 3.375 GM/100 ML BAG IVPB SCH ×3 (05:00→20:15)
[2016-02-28 06:15] LABS: Hematocrit 26 % (42-52); Hemoglobin 8.8 g/dl (14.0-18.0); Mean Corpuscular HGB Conc 34 g/dl (31-36); Mean Corpuscular Hemoglobin 36 pg (27-31); Mean Corpuscular Volume 108 fL (80-94); Mean Platelet Volume 9 um3 (7.4-10.4); Red Blood Count 2.42 10^6/ul (4.0-5.4); Red Cell Distribution Width 21 % (10.5-15); White Blood Count 8.9 10^3/ul (3.5-10.8)
[2016-02-28 06:19] LABS: Comments Flag Yes
[2016-02-28 06:26] LABS: Albumin 2.3 g/dL (3.2-5.2); BUN/Creatinine Ratio 21.4 (8-20); C Reactive Protein 8.87 mg/L (< 5.00); Calcium 7.3 mg/dL (8.6-10.3); EGFR Non-African American 157.1 (>60); Globulin 3.7 g/dL (2-4); Total Bilirubin 7.1 mg/dL (0.2-1.0)
[2016-02-28 08:30] LABS: Magnesium 2.1 mg/dL (1.9-2.7)
[2016-02-28] MEDS: RiFAXimin* 550 MG TAB PO SCH ×2 (08:32→20:15)
[2016-02-28] MEDS: Famotidine TAB* 20 MG SCH ×2 (08:32→20:16)
[2016-02-28] MEDS: Enoxaparin(*) 40 MG/0.4 ML SYR SUBCUT SCH (08:32)
[2016-02-28] MEDS: Folic Acid IV* 1 MG/0.2 ML SYRINGE IV SCH (08:33)
[2016-02-28] MEDS: Thiamine IV* 100 MG/ML 2 ML VIAL IV SCH (08:33)
--- NOTE | 2016-02-28 08:58 | PN ---
Critical Care Services: Eyes open today but still not responsive to verbal commands. Continues to have fever but no apparent infection. Placed on zosyn empirically. Blood cultures pending. Vital Signs: Temp Pulse Resp BP SpO2 FiO2 100.2 F 93 15 150/56 97 25 Physical Exam: Gen:Eyes open but does not localize to pain. HEENT:Pupils reactive Lungs:Occasional rhonchi Abdomen:Not distended Extremities:no cyanosis. 1+edema Neuro:No asterixis Fluid Balance (Past 24 Hours): 02/28/16 06:59 Intake Total 2511 Output Total 2024 Balance +486 Weight 160 lb Intake: IV Fluids 689.9 LR 558.2 NS (0.9%) 131.7 Medicated IV 384.6 CC - Propofol/Diprivan 184.6 GEN - Pantoprazole/ 200 Protonix Oral 0 Tube Feeding 1257 Tube Feeding Flush Amount 180 Output: NG Tube Drainage Amount Machuca 2024 Tube Feeding Residual 0 Amount Wasted Other: Date of Last Bowel 02/28/16 Movement # Bowel Movements 1 Estimated Stool Amount Large Labs: 02/27/16 02/27/16 04:30 22:45 Phosphorus 2.2 Lipase 88 02/28/16 02/28/16 06:00 06:00 WBC 8.9 Hgb 8.8 Hct 26 L MCV 108 H Plt Count 46 L Sodium 138 Potassium 3.0 Chloride 111 Carbon Dioxide 22 BUN 12 Creatinine 0.56 L Glucose 129 H Calcium 7.3 L Magnesium 2.1 Total Bilirubin 7.10 AST 127 H ALT 48 Alkaline Phosphatase 170 H Ammonia 90 C-Reactive Protein 8.87 Total Protein 6.0 L Albumin 2.3 Studies: None today Nutrition: Tube feedings with Jevity 1.2 Impression: Continuing unresponsiveness is concerning. Ammonia level has decreased, but still elevated. Sepsis could be playing a role, but there is no evidence of infection at the present time. Acute Wernicke's encephalopathy also a possibility (although difficult to confirm), and have started the patient on IV thiamine. Plan: 1. Continue present management plan. 2. Continue looking for source of fever. 3. Replace potassium. Critical Care Time: 40 minutes
[2016-02-28] MEDS: KCL 20 MEQ/100 ML IVPREMIX* 20 MEQ/100 ML BAG IV SCH ×2 (09:03→11:16)
[2016-02-29] MEDS: Chlorhexidine MOUTHWASH 0.12%* 15 ML UDC TOPICAL SCH ×3 (00:13→08:15)
[2016-02-29] MEDS: Piperac/Tazob 3.375 gm in NS* 3.375 GM/100 ML BAG IVPB SCH ×3 (04:46→20:47)
[2016-02-29 05:34] LABS: Hematocrit 24 % (42-52); Mean Corpuscular HGB Conc 33 g/dl (31-36); Mean Corpuscular Hemoglobin 36 pg (27-31); Mean Platelet Volume 10 um3 (7.4-10.4); Red Blood Count 2.21 10^6/ul (4.0-5.4); Red Cell Distribution Width 20 % (10.5-15); White Blood Count 6.5 10^3/ul (3.5-10.8)
[2016-02-29 05:37] LABS: Comments Flag Yes
[2016-02-29 05:38] LABS: Mean Corpuscular Volume 109 fL (80-94)
[2016-02-29 05:45] LABS: BUN/Creatinine Ratio 21.6 (8-20); Calcium 6.9 mg/dL (8.6-10.3); Potassium 3.1 mmol/L (3.5-5.0)
[2016-02-29] MEDS: Propofol* 100 ML IV SCH (07:48)
[2016-02-29] MEDS: Enoxaparin(*) 40 MG/0.4 ML SYR SUBCUT SCH (10:01)
[2016-02-29] MEDS: Folic Acid IV* 1 MG/0.2 ML SYRINGE IV SCH (10:03)
[2016-02-29] MEDS: Thiamine IV* 100 MG/ML 2 ML VIAL IV SCH (10:06)
[2016-02-29] MEDS: Famotidine TAB* 20 MG SCH ×2 (10:09→20:46)
[2016-02-29] MEDS: RiFAXimin* 550 MG TAB PO SCH (10:10)
--- NOTE | 2016-02-29 12:13 | PN ---
Critical Care Services: Is awake today and responding appropriately! Vital Signs: Temp Pulse Resp BP SpO2 FiO2 99.8 F 87 12 116/55 99 25 Physical Exam: Gen:Comfortable on the ventilator with propofol off. Lungs:occasional rhonchi. No crackles or wheezes Extremities: No cyanosis. trace edema Fluid Balance (Past 24 Hours): 02/29/16 06:59 Intake Total 2689 Output Total 1750 Balance +939 Weight 159 lb Intake: IV Fluids 309 NS (0.9%) 224 NS KVO 85 IVPB 911 NS (0.9%) 656 NS KVO 255 Medicated IV 374 CC - Propofol/Diprivan 374 GEN - Pantoprazole/ Protonix Oral 0 Tube Feeding 945 Tube Feeding Flush Amount 150 Output: [place] 1750 Tube Feeding Residual 0 Labs: 02/29/16 02/29/16 05:00 05:00 WBC 6.5 Hgb 8.0 Hct 24 MCV 109 Plt Count 38 MPV 10 Sodium 139 Potassium 3.1 Chloride 111 Carbon Dioxide 23 Anion Gap 5 BUN 11 Creatinine 0.51 Glucose 112 Calcium 6.9 Ammonia 77 Studies: None today Nutrition: Tube feedings Impression: Much improved today Plan: Wean and extubate today (if tolerated). Also will D/C rifaximin (and continue lactulose). Critical Care Time: 40 minutes
[2016-02-29] MEDS: KCL 20 MEQ/100 ML IVPREMIX* 20 MEQ/100 ML BAG IV SCH ×3 (15:16→19:37)
[2016-03-01 02:48] LABS: BUN/Creatinine Ratio 23.5 (8-20); Calcium 7.1 mg/dL (8.6-10.3); Magnesium 1.9 mg/dL (1.9-2.7); Potassium 3.6 mmol/L (3.5-5.0)
[2016-03-01] MEDS: Piperac/Tazob 3.375 gm in NS* 3.375 GM/100 ML BAG IVPB SCH (04:48)
[2016-03-01 05:55] LABS: Hematocrit 25 % (42-52); Hemoglobin 8.3 g/dl (14.0-18.0); Mean Corpuscular HGB Conc 34 g/dl (31-36); Mean Corpuscular Hemoglobin 38 pg (27-31); Mean Platelet Volume 10 um3 (7.4-10.4); Red Cell Distribution Width 19 % (10.5-15); White Blood Count 5.8 10^3/ul (3.5-10.8)
[2016-03-01 06:09] LABS: Comments Flag Yes
[2016-03-01 06:10] LABS: Mean Corpuscular Volume 111 fL (80-94)
[2016-03-01] MEDS: Famotidine TAB* 20 MG SCH ×2 (09:00→21:01)
[2016-03-01] MEDS: Folic Acid IV* 1 MG/0.2 ML SYRINGE IV SCH (09:00)
[2016-03-01] MEDS: Enoxaparin(*) 40 MG/0.4 ML SYR SUBCUT SCH (09:00)
[2016-03-01] MEDS: Thiamine IV* 100 MG/ML 2 ML VIAL IV SCH (09:01)
[2016-03-01] MEDS ORDERED: LORazepam TAB(*) 1 MG PO PRN (09:56)
--- NOTE | 2016-03-01 10:26 | PN ---
Critical Care Services: Extubated yesterday without incident, and this AM is alert and oriented. Is up in chair eating breakfast. Vital Signs: Temp Pulse Resp BP SpO2 FiO2 99.5 F 79 15 113/60 98 25 Physical Exam: Gen:Alert, oriented, and appears comfortable Lungs:clear Neuro:no asterixis Fluid Balance (Past 24 Hours): 03/01/16 06:59 Intake Total 2839 Output Total 2150 Balance +689 Weight 159 lb Intake: IV Fluids 376 NS KVO 376 IVPB 627 NS KVO 627 Medicated IV 66 CC - Propofol/Diprivan 66 Oral 1680 Tube Feeding Tube Feeding Flush Amount 90 Output: [place] 1250 Liquid Stool 900 Other: Date of Last Bowel 02/29/2016 Movement # Bowel Movements 2 Labs: 03/01/16 03/01/16 02:05 05:40 WBC 5.8 Hgb 8.3 Hct 25 L MCV 111 H Plt Count 40 Sodium 135 Potassium 3.6 Chloride 111 Carbon Dioxide 22 BUN 12 Creatinine 0.51 Glucose 82 Magnesium 1.9 NOTE: Macrocytic anemia and thrombocytopenia. Studies: None today Nutrition: Regular diet Impression: Hepatic encephalopathy has resolved. Plan: 1. Continue lactulose (q6h) and d/c rifaximin (done). 2. Folate for macrocytic anemia. 3. Transfer out of ICU today. (Patient's mother actively involved - he will live at the mother's house after discharge.)
[2016-03-01] MEDS: Chlorhexidine MOUTHWASH 0.12%* 15 ML UDC TOPICAL SCH (10:47)
[2016-03-01] MEDS ORDERED: Potassium Chlor TAB* 20 MEQ TAB.ER PO ONE (10:57)
[2016-03-02 05:02] LABS: Hematocrit 24 % (42-52); Mean Corpuscular HGB Conc 33 g/dl (31-36); Mean Corpuscular Hemoglobin 37 pg (27-31); Mean Platelet Volume 10 um3 (7.4-10.4); Red Blood Count 2.17 10^6/ul (4.0-5.4); Red Cell Distribution Width 19 % (10.5-15); White Blood Count 5.2 10^3/ul (3.5-10.8)
[2016-03-02 05:04] LABS: Comments Flag Yes; Mean Corpuscular Volume 111 fL (80-94)
[2016-03-02 05:12] LABS: BUN/Creatinine Ratio 21.2 (8-20); EGFR Non-African American 171.1 (>60); Potassium 3.6 mmol/L (3.5-5.0)
[2016-03-02] MEDS: Enoxaparin(*) 40 MG/0.4 ML SYR SUBCUT SCH (07:29)
[2016-03-02] MEDS: Famotidine TAB* 20 MG SCH ×2 (07:29→21:47)
[2016-03-02] MEDS: Folic Acid TAB* 1 MG PO SCH (07:29)
--- NOTE | 2016-03-02 16:55 | PN ---
Subjective Date of Service: 03/02/16 Interval History: . Interviewed and examined patient at bedside; Discussed case with Dr. Ku ; Reviewed previous notes and radiology results; Called to see patient this AM by nursing staff after 30 second seizure with spontaneous resolution. confused afterwards c/w post-ictal state. moved patient to 4S unit for tele monitor; did not add AED after curbside with neurology --if another episode, will use Dilantin to avoid depressive effects a/ w Keppra (though keppra might be used acutely). otherwise, patient ok - cleared up ~ 1 hour after episode and was A&Ox3. concern ongoing for thiamine deficiency -->> will add supplementation and continue close observation. home with mother's supervision when stable and no evidence for seizure. . Family History: Unchanged from Admission Social History: Unchanged from Admission Past Medical History: Unchanged from Admission Objective Active Medications: Enoxaparin Sodium (Lovenox(*)) 40 mg SUBCUT Q24H [facility] Last Admin: 03/02/16 07:29 Dose: 40 mg Famotidine (Pepcid Tab*) 20 mg .SEE ORDER BID [facility] Last Admin: 03/02/16 07:29 Dose: 20 mg Folic Acid (Folvite Tab*) 1 mg PO DAILY [facility] Last Admin: 03/02/16 07:29 Dose: 1 mg Heparin Sodium (Porcine) (Heparin Flush Picc/Ml/Cvc(*)) 1 - 3 ml FLUSH 0600, 1800 [facility] PRN Reason: Protocol Last Admin: 03/02/16 04:42 Dose: 2 ml Lactulose (Lactulose*) 30 ml PO Q6H [facility] Last Admin: 03/02/16 16:32 Dose: 30 ml Lorazepam (Ativan Tab(*)) 1 mg PO Q6H PRN PRN Reason: ANXIETY Vital Signs 03/01/16 03/01/16 03/02/16 19:12 20:00 00:02 Temperature 99.1 F 99.6 F Pulse Rate 86 79 Respiratory 16 16 20 Rate Blood Pressure 108/53 120/57 (mmHg) O2 Sat by Pulse 100 99 Oximetry 03/02/16 03/02/16 03/02/16 07:42 07:55 09:46 Temperature 98.4 F 98.8 F Pulse Rate 75 113 Respiratory 16 18 18 Rate Blood Pressure 116/59 132/81 (mmHg) O2 Sat by Pulse 100 100 Oximetry Oxygen Devices in Use Now: Nasal Cannula Appearance: sedated/post-ictal state Eyes: PERRLA Ears/Nose/Mouth/Throat: NL Teeth, Lips, Gums Neck: NL Appearance and Movements; NL JVP Respiratory: Symmetrical Chest Expansion and Respiratory Effort Cardiovascular: NL Sounds; No Murmurs; No JVD Abdominal: NL Sounds; No Tenderness; No Distention Lymphatic: No Cervical Adenopathy Extremities: No Edema Skin: No Rash or Ulcers Neurological: Alert and Oriented x 3 - at times, confused and disoriented earlier (post-ictal) Lines/Tubes/Other Access: Clean, Dry and Intact Peripheral IV Nutrition: Taking PO's Result Diagrams: 03/02/16 04:56 03/02/16 04:56 Additional Lab and Data: . Microbiology and Other Data: Microbiology 02/27/16 11:32 Aerobic Blood Culture - Preliminary Blood Line No Growth Day 4 Anaerobic Blood Culture - Preliminary No Growth Day 4 Blood Culture - Final 02/27/16 11:30 Aerobic Blood Culture - Preliminary Blood Line No Growth Day 4 Anaerobic Blood Culture - Preliminary No Growth Day 4 Blood Culture - Final 02/28/16 10:30 Gram Stain - Final Sputum Sputum Culture - Final Staphylococcus Aureus Normal Gladys 02/27/16 13:30 Stool Occult Blood (ANA PAULA) - Final Stool 02/24/16 23:14 Nasal Screen MRSA (PCR)(ANA PAULA) - Final Nasal Mrsa Negative Assess/Plan/Problems-Billing . Assessment: 45 yo man with acute hepatic encephalopathy and etoh withdrawal and respiratory failure and intubation with propofol sedation -- now extubated and up to floor, but case complicated by seizure earlier today with post-ictal state / confusion.. - Patient Problems (1) Seizure Current Visit: Yes Status: Acute Priority: High Code(s): R56.9 - UNSPECIFIED CONVULSIONS Comment: - most likely secondary to etoh withdrawal, though admittedly late in course. 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 BUT, short seizure 03/02/16 AM with post-ictal and fluctuating level of alertness. Scoring 0 on the WAM. No ativan given. Move to [facility] for monitoring Plan still for outpt Alcohol rehab (4) Alcoholic liver damage Current Visit: No Status: Acute Code(s): K70.9 - ALCOHOLIC LIVER DISEASE, UNSPECIFIED SNOMED Code(s): 88383464 Comment: Bili and Ammonia OK Continue Lactulose TID. Daily labs / NH3 / LFT (5) Anxiety Current Visit: No Status: Acute Priority: High Code(s): F41.9 - ANXIETY DISORDER, UNSPECIFIED Comment: Continue Gabapetin. (6) Hepatic encephalopathy Current Visit: No Status: Acute Code(s): K72.90 - HEPATIC FAILURE, UNSPECIFIED WITHOUT COMA Comment: Ammonia improved Continue lactulose (7) Liver disease Current Visit: No Status: Acute Code(s): K76.9 - LIVER DISEASE, UNSPECIFIED SNOMED Code(s): 856186479 Comment: Transaminitis OK Hep C nonreactive 05/2015. Close f/u as outpt (8) Anemia Current Visit: No Status: Chronic Priority: Medium Code(s): D64.9 - ANEMIA , UNSPECIFIED Comment: Macrocytic anemia with thrombocytopenia. Secondary to liver disease. (9) Tobacco use Current Visit: No Status: Chronic Code(s): Z72.0 - TOBACCO USE Comment: Smoking cessation & maintenance counselling reiterated
[2016-03-03] MEDS: Enoxaparin(*) 40 MG/0.4 ML SYR SUBCUT SCH (07:50)
[2016-03-03] MEDS: Folic Acid TAB* 1 MG PO SCH (07:51)
[2016-03-03] MEDS: Famotidine TAB* 20 MG SCH ×2 (07:51→22:17)
[2016-03-03] MEDS ORDERED: Thiamine IV* 100 MG/ML 2 ML VIAL IV ONE (09:56)
[2016-03-03] MEDS ORDERED: Thiamine IV* 100 MG, Folic Acid IV* 1 MG, Multiple Vitamin IV ADULT* 10 ML in NS 0.9% 1... IV ONE (10:00)
[2016-03-03 11:52] LABS: Comments Flag Yes; Hematocrit 25 % (42-52); Hemoglobin 8.2 g/dl (14.0-18.0); Mean Corpuscular HGB Conc 33 g/dl (31-36); Mean Corpuscular Hemoglobin 37 pg (27-31); Mean Corpuscular Volume 111 fL (80-94); Mean Platelet Volume 10 um3 (7.4-10.4); Red Blood Count 2.22 10^6/ul (4.0-5.4); Red Cell Distribution Width 19 % (10.5-15); White Blood Count 4.3 10^3/ul (3.5-10.8)
[2016-03-03 12:09] LABS: ALT 52 U/L (7-52); AST 120 U/L (13-39); Albumin 2.1 g/dL (3.2-5.2); Alkaline Phosphatase 151 U/L (34-104); Anion Gap 5 mmol/L (2-11); BUN/Creatinine Ratio 19.1 (8-20); Blood Urea Nitrogen 9 mg/dL (6-24); CO2 Carbon Dioxide 21 mmol/L (22-32); Calcium 7.3 mg/dL (8.6-10.3); Chloride 108 mmol/L (101-111); EGFR African American 247.3 (>60); EGFR Non-African American 192.3 (>60); Globulin 2.9 g/dL (2-4); Glucose 112 mg/dL (70-100); Magnesium 1.8 mg/dL (1.9-2.7); Phosphorus 2.1 mg/dL (2.5-5.0); Potassium 3.6 mmol/L (3.5-5.0); Sodium 134 mmol/L (133-145)
[2016-03-03 13:00] LABS: Vitamin B12 > 1450 pg/mL (180-914)
[2016-03-03] MEDS ORDERED: Potassium Chlor TAB* 10 MEQ TAB.ER PO ONE (17:45)
[2016-03-03] MEDS ORDERED: Magnesium Sulf 4 GM/100 ML IV* 4,000 MG/100 ML BAG IVPB ONE (17:47)
--- NOTE | 2016-03-03 17:50 | PN ---
Subjective Date of Service: 03/03/16 Interval History: still not back to baseline mental status ? hyperammonemia ==> check NH3 increase lactulose. Family History: Unchanged from Admission Social History: Unchanged from Admission Past Medical History: Unchanged from Admission Objective Active Medications: . Enoxaparin Sodium (Lovenox(*)) 40 mg SUBCUT Q24H [facility] Last Admin: 03/03/16 07:50 Dose: 40 mg Famotidine (Pepcid Tab*) 20 mg .SEE ORDER BID [facility] Last Admin: 03/03/16 07:51 Dose: 20 mg Folic Acid (Folvite Tab*) 1 mg PO DAILY [facility] Last Admin: 03/03/16 07:51 Dose: 1 mg Heparin Sodium (Porcine) (Heparin Flush Picc/Ml/Cvc(*)) 1 - 3 ml FLUSH 0600, 1800 [facility] PRN Reason: Protocol Last Admin: 03/03/16 17:22 Dose: Not Given Potassium Phosphate 15 mmole/ (Sodium Chloride) 255 mls @ 42 mls/hr IVPB ONCE ONE Stop: 03/03/16 23:50 Magnesium Sulfate (Magnesium Sulf 4 Gm/100 Ml Iv*) 4,000 mg in 100 mls @ 33.333 mls/hr IVPB ONCE ONE Stop: 03/03/16 20:46 Lactulose (Lactulose*) 30 ml PO Q6H [facility] Last Admin: 03/03/16 17:05 Dose: 30 ml Lorazepam (Ativan Tab(*)) 1 mg PO Q6H PRN PRN Reason: ANXIETY Potassium Chloride (Klor Con Er Tab*) 40 meq PO ONCE ONE Stop: 03/03/16 17:46 Thiamine HCl (Vitamin B1 Iv*) 100 mg IV DAILY [facility] . Vital Signs 03/02/16 03/02/16 03/02/16 18:00 20:00 20:14 Temperature 98.7 F Pulse Rate 72 Respiratory 20 18 18 Rate Blood Pressure 112/61 (mmHg) O2 Sat by Pulse 100 Oximetry 03/02/16 03/03/16 03/03/16 23:44 03:36 07:22 Temperature 98.9 F 99.4 F 99.0 F Pulse Rate 68 73 65 Respiratory 16 16 16 Rate Blood Pressure 116/60 108/57 114/50 (mmHg) O2 Sat by Pulse 99 98 98 Oximetry Oxygen Devices in Use Now: Nasal Cannula Appearance: mid aged - appears older than stated age --> tired appearing Eyes: No Scleral Icterus Ears/Nose/Mouth/Throat: Clear Oropharnyx Neck: Trachea Midline Respiratory: Symmetrical Chest Expansion and Respiratory Effort, Clear to Auscultation Abdominal: NL Sounds; No Tenderness; No Distention Lymphatic: No Cervical Adenopathy Extremities: No Edema Skin: No Rash or Ulcers Lines/Tubes/Other Access: Clean, Dry and Intact Peripheral IV Nutrition: Taking PO's Result Diagrams: 03/03/16 11:41 03/03/16 11:41 Additional Lab and Data: . Microbiology and Other Data: Microbiology 02/27/16 11:32 Aerobic Blood Culture - Preliminary Blood Line No Growth Day 4 Anaerobic Blood Culture - Preliminary No Growth Day 4 Blood Culture - Final 02/27/16 11:30 Aerobic Blood Culture - Preliminary Blood Line No Growth Day 4 Anaerobic Blood Culture - Preliminary No Growth Day 4 Blood Culture - Final 02/28/16 10:30 Gram Stain - Final Sputum Sputum Culture - Final Staphylococcus Aureus Normal Gladsy 02/27/16 13:30 Stool Occult Blood (ANA PAULA) - Final Stool 02/24/16 23:14 Nasal Screen MRSA (PCR)(ANA PAULA) - Final Nasal Mrsa Negative Assess/Plan/Problems-Billing . Assessment: 45 yo man with acute hepatic encephalopathy and etoh withdrawal and respiratory failure and intubation with propofol sedation -- now extubated and up to floor, but case complicated by seizure with post-ictal state / confusion... situation confusion because of ongoing hepatic encephalopathy --> increasing lactulose. - Patient Problems (1) Seizure Current Visit: Yes Status: Acute Priority: High Code(s): R56.9 - UNSPECIFIED CONVULSIONS Comment: - most likely secondary to etoh withdrawal, though admittedly late in course. - no AED yet - observe and use dilantin if agent is needed - empiric thiamine (Wernicke's?) - telemetry monitoring - can end today. (2) Alcohol abuse Current Visit: No Status: Acute Code(s): F10.10 - ALCOHOL ABUSE, UNCOMPLICATED Comment: - SW consult - Mother involved and good support - Hepatic encephalopathy secondary to longstanding etoh liver disease (3) Alcohol dependence with withdrawal Current Visit: No Status: Acute Code(s): F10.239 - ALCOHOL DEPENDENCE WITH WITHDRAWAL, UNSPECIFIED SNOMED Code(s): 69227360 Comment: Detox resolving. BUT, short seizure 03/02/16 AM with post-ictal and fluctuating level of alertness. Scoring 0 on the WAM. No ativan given. Move to tele for monitoring --> can end 03/03/15 Plan still for outpt Alcohol rehab (4) Alcoholic liver damage Current Visit: No Status: Acute Code(s): K70.9 - ALCOHOLIC LIVER DISEASE, UNSPECIFIED SNOMED Code(s): 91535323 Comment: Bili and Ammonia OK Continue Lactulose TID. Daily labs / NH3 / LFT (5) Anxiety Current Visit: No Status: Acute Priority: High Code(s): F41.9 - ANXIETY DISORDER, UNSPECIFIED Comment: Continue Gabapetin. (6) Hepatic encephalopathy Current Visit: No Status: Acute Code(s): K72.90 - HEPATIC FAILURE, UNSPECIFIED WITHOUT COMA Comment: Ammonia improved Continue lactulose (7) Liver disease Current Visit: No Status: Acute Code(s): K76.9 - LIVER DISEASE, UNSPECIFIED SNOMED Code(s): 278074431 Comment: Transaminitis OK Hep C nonreactive 05/2015. Close f/u as outpt (8) Anemia Current Visit: No Status: Chronic Priority: Medium Code(s): D64.9 - ANEMIA , UNSPECIFIED Comment: Macrocytic anemia with thrombocytopenia. Secondary to liver disease. (9) Tobacco use Current Visit: No Status: Chronic Code(s): Z72.0 - TOBACCO USE Comment: Smoking cessation & maintenance counselling reiterated
[2016-03-03] MEDS ORDERED: Potassium Phosphate IV* 15 MMOLE in NS 0.9% 250 ML* 250 ML IVPB ONE (18:15)
--- NOTE | 2016-03-04 02:12 | EEG ---
ELECTROENCEPHALOGRAPHY: DATE OF STUDY/DICTATION: 03/03/16 - ROOM #436 PATIENT OF: Leroy Rossi MD HISTORY: This is a 45-year-old man being evaluated for a seizure in the setting of being hospitalized for encephalopathy thought secondary to alcoholism. MEDICATIONS: Include: 1. Ativan. 2. Lovenox. 3. Pepcid. 4. Lactulose. 5. Vitamin supplements. INTERPRETATION: With the patient drowsy, background cerebral activity consists of diffuse admixture of alpha, theta, and delta activity. There are triphasic waves noted bilaterally. The patient arouses during this tracing and becomes more awake and at that point, background consists moderate amplitude of 9 to 10 Hz rhythm. Some muscle movement artifact noted at times. There are no triphasic waves noted during the more clearly awake portion of the tracing. No clear epileptiform potentials. IMPRESSION: This awake and drowsy EEG is abnormal because of the presence of triphasic waves during the drowsy portion of this tracing. This is consistent with a metabolic encephalopathy, presumably from his alcoholic liver disease. There are no epileptiform potentials. [id number]/[facility] #: [id number] [facility]
[2016-03-04 05:04] LABS: Hematocrit 25 % (42-52); Hemoglobin 8.3 g/dl (14.0-18.0); Mean Corpuscular HGB Conc 33 g/dl (31-36); Mean Corpuscular Hemoglobin 37 pg (27-31); Mean Corpuscular Volume 111 fL (80-94); Mean Platelet Volume 10 um3 (7.4-10.4); Red Blood Count 2.25 10^6/ul (4.0-5.4); Red Cell Distribution Width 18 % (10.5-15); White Blood Count 5.3 10^3/ul (3.5-10.8)
[2016-03-04 05:07] LABS: Comments Flag Yes
[2016-03-04 05:15] LABS: Ammonia 47 mol/L (16-53)
[2016-03-04 05:21] LABS: B Type Natriuretic Peptide 189 pg/mL
[2016-03-04] MEDS: Folic Acid TAB* 1 MG PO SCH (09:35)
[2016-03-04] MEDS: Famotidine TAB* 20 MG SCH ×2 (09:35→21:38)
[2016-03-04] MEDS: Enoxaparin(*) 40 MG/0.4 ML SYR SUBCUT SCH (09:35)
[2016-03-04] MEDS ORDERED: Phytonadione Oral Solution* 5 MG/25 ML UDC PO ONE (11:45)
[2016-03-04] MEDS: Thiamine IV* 100 MG/ML 2 ML VIAL IV SCH (12:38)
--- NOTE | 2016-03-04 21:43 | PN ---
Subjective Date of Service: 03/04/16 Interval History: . more alert today but mom is still concerned he is not suitable for dc. I spent about 30 minutes directly speaking with her and we finally agreed he would go home tomorrow. Extra doses of lactulose will be given today. ambulation is the plan regular diet. nutritional counselling. . Family History: Unchanged from Admission Social History: Unchanged from Admission Past Medical History: Unchanged from Admission Objective Active Medications: . Enoxaparin Sodium (Lovenox(*)) 40 mg SUBCUT Q24H [facility] Last Admin: 03/04/16 09:35 Dose: 40 mg Famotidine (Pepcid Tab*) 20 mg .SEE ORDER BID [facility] Last Admin: 03/04/16 09:35 Dose: 20 mg Folic Acid (Folvite Tab*) 1 mg PO DAILY [facility] Last Admin: 03/04/16 09:35 Dose: 1 mg Heparin Sodium (Porcine) (Heparin Flush Picc/Ml/Cvc(*)) 1 - 3 ml FLUSH 0600, 1800 [facility] PRN Reason: Protocol Last Admin: 03/04/16 16:13 Dose: Not Given Lactulose (Lactulose*) 30 ml PO Q6H [facility] Last Admin: 03/04/16 16:35 Dose: 30 ml Lorazepam (Ativan Tab(*)) 1 mg PO Q6H PRN PRN Reason: ANXIETY Thiamine HCl (Vitamin B1 Iv*) 100 mg IV DAILY [facility] Last Admin: 03/04/16 12:38 Dose: 100 mg . Vital Signs 03/04/16 03/04/16 00:08 08:00 Temperature 98.7 F Pulse Rate 69 Respiratory 16 18 Rate Blood Pressure 120/67 (mmHg) O2 Sat by Pulse 100 Oximetry Oxygen Devices in Use Now: Nasal Cannula Appearance: nad today Ears/Nose/Mouth/Throat: Clear Oropharnyx Neck: Trachea Midline Respiratory: Symmetrical Chest Expansion and Respiratory Effort, Clear to Auscultation Cardiovascular: NL Sounds; No Murmurs; No JVD Lymphatic: No Cervical Adenopathy Extremities: No Edema Skin: No Rash or Ulcers, - - icteric Neurological: Alert and Oriented x 3 - a bit slow with responses. Lines/Tubes/Other Access: Clean, Dry and Intact Peripheral IV Nutrition: Taking PO's Result Diagrams: 03/04/16 04:53 03/03/16 11:41 Additional Lab and Data: . Microbiology and Other Data: Microbiology 02/27/16 11:32 Aerobic Blood Culture - Preliminary Blood Line No Growth Day 4 Anaerobic Blood Culture - Preliminary No Growth Day 4 Blood Culture - Final 02/27/16 11:30 Aerobic Blood Culture - Preliminary Blood Line No Growth Day 4 Anaerobic Blood Culture - Preliminary No Growth Day 4 Blood Culture - Final 02/28/16 10:30 Gram Stain - Final Sputum Sputum Culture - Final Staphylococcus Aureus Normal Gladys 02/27/16 13:30 Stool Occult Blood (ANA PAULA) - Final Stool 02/24/16 23:14 Nasal Screen MRSA (PCR)(ANA PAULA) - Final Nasal Mrsa Negative Assess/Plan/Problems-Billing . Assessment: 45 yo man with acute hepatic encephalopathy and etoh withdrawal and respiratory failure and intubation with propofol sedation -- now extubated and up to floor, but case complicated by seizure with post-ictal state / confusion... situation confusion because of ongoing hepatic encephalopathy --> increasing lactulose. - Patient Problems (1) Seizure Current Visit: Yes Status: Acute Priority: High Code(s): R56.9 - UNSPECIFIED CONVULSIONS Comment: - most likely secondary to etoh withdrawal, though admittedly late in course. - no AED yet - observe and use dilantin if agent is needed - empiric thiamine (Wernicke's?) - telemetry monitoring - ended 03/03/15 (2) Alcohol abuse Current Visit: No Status: Acute Code(s): F10.10 - ALCOHOL ABUSE, UNCOMPLICATED Comment: - SW consult - Mother involved and good support - Hepatic encephalopathy secondary to longstanding etoh liver disease (3) Alcohol dependence with withdrawal Current Visit: No Status: Acute Code(s): F10.239 - ALCOHOL DEPENDENCE WITH WITHDRAWAL, UNSPECIFIED SNOMED Code(s): 68099807 Comment: Detox resolved BUT, short seizure 1 AM with post-ictal and fluctuating level of alertness. Scoring 0 on the WAM. No ativan given. WAM Off now Move to [facility] for monitoring --> can end 03/03/15 Plan still for outpt Alcohol rehab (4) Alcoholic liver damage Current Visit: No Status: Acute Code(s): K70.9 - ALCOHOLIC LIVER DISEASE, UNSPECIFIED SNOMED Code(s): 19958964 Comment: Bili and Ammonia increased again -- then back down today after extra doses. Underscores the need for lactulsoe therapy. Continue Lactulose QID Daily labs / NH3 / LFT (5) Anxiety Current Visit: No Status: Acute Priority: High Code(s): F41.9 - ANXIETY DISORDER, UNSPECIFIED Comment: Continue Gabapetin. (6) Hepatic encephalopathy Current Visit: No Status: Acute Code(s): K72.90 - HEPATIC FAILURE, UNSPECIFIED WITHOUT COMA Comment: Ammonia improved Continue lactulose (7) Liver disease Current Visit: No Status: Acute Code(s): K76.9 - LIVER DISEASE, UNSPECIFIED SNOMED Code(s): 331282203 Comment: Transaminitis OK Hep C nonreactive 05/2015. Close f/u as outpt (8) Anemia Current Visit: No Status: Chronic Priority: Medium Code(s): D64.9 - ANEMIA , UNSPECIFIED Comment: Macrocytic anemia with thrombocytopenia. Secondary to liver disease. (9) Tobacco use Current Visit: No Status: Chronic Code(s): Z72.0 - TOBACCO USE Comment: Smoking cessation & maintenance counselling reiterated
[2016-03-04] MEDS ORDERED: LORazepam INJ* 2 MG/ML 1 ML VIAL ONE (22:05)
[2016-03-04] MEDS ORDERED: Phenytoin IV(*) 1,000 MG in NS 0.9% 250 ML* 250 ML IV ONE (22:20)
--- NOTE | 2016-03-04 23:37 | PN ---
Progress Note - Progress Note Note: CAT call on patient for seizure like activity. Patient rigid with upper and lower ext, lower mouth twitching. Patient seemed to be able to make eye contact intermittently during the seizure. Ativan 2 mg given, with good effect. Dr. Rossi present - he had spoken with neurology in the past regarding this patient and his history of having a prior seizure during this hospitalization and stated to start dilantin if it occurred again. Dr. Rossi ordered loading dose of 1 gm of phenytoin. Recommend follow up with neurology in AM regarding continuous AEDs. Of note, two EEGs during this hospitalization did not show seizure like activity. Consider possible psych evaluation as well.
[2016-03-05 05:46] LABS: Hematocrit 26 % (42-52); Hemoglobin 8.8 g/dl (14.0-18.0); Mean Corpuscular HGB Conc 34 g/dl (31-36); Mean Corpuscular Hemoglobin 37 pg (27-31); Mean Platelet Volume 10 um3 (7.4-10.4); Red Blood Count 2.36 10^6/ul (4.0-5.4); Red Cell Distribution Width 18 % (10.5-15); White Blood Count 6.2 10^3/ul (3.5-10.8)
[2016-03-05 05:47] LABS: Comments Flag Yes
[2016-03-05 05:48] LABS: Mean Corpuscular Volume 110 fL (80-94)
[2016-03-05 06:02] LABS: BUN/Creatinine Ratio 14.9 (8-20); Calcium 7.4 mg/dL (8.6-10.3); EGFR African American 247.3 (>60); EGFR Non-African American 192.3 (>60); Magnesium 1.8 mg/dL (1.9-2.7); Phosphorus 2.6 mg/dL (2.5-5.0)
[2016-03-05] MEDS: Enoxaparin(*) 40 MG/0.4 ML SYR SUBCUT SCH (08:59)
[2016-03-05] MEDS: Famotidine TAB* 20 MG SCH ×2 (08:59→20:34)
[2016-03-05] MEDS: Thiamine IV* 100 MG/ML 2 ML VIAL IV SCH (09:00)
[2016-03-05] MEDS: Folic Acid TAB* 1 MG PO SCH (09:00)
[2016-03-05] MEDS ORDERED: Gadoteridol* (CONTRAST) 279.3 MG/ML 10 ML IV ONE (15:42)
--- NOTE | 2016-03-05 16:19 | PN ---
Subjective Date of Service: 03/05/16 Interval History: Pt is feeling ok. His mom thinks he is a little foggy today. He seems sleepier today. The patient denies feeling in a fog. He denies having any BMs but his mom states he is having a lot of BMs daily. Objective Active Medications: Enoxaparin Sodium (Lovenox(*)) 40 mg SUBCUT Q24H [facility] Last Admin: 03/05/16 08:59 Dose: 40 mg Famotidine (Pepcid Tab*) 20 mg .SEE ORDER BID [facility] Last Admin: 03/05/16 08:59 Dose: 20 mg Folic Acid (Folvite Tab*) 1 mg PO DAILY [facility] Last Admin: 03/05/16 09:00 Dose: 1 mg Heparin Sodium (Porcine) (Heparin Flush Picc/Ml/Cvc(*)) 1 - 3 ml FLUSH 0600, 1800 [facility] PRN Reason: Protocol Last Admin: 03/05/16 05:34 Dose: Not Given Lactulose (Lactulose*) 30 ml PO Q6H [facility] Last Admin: 03/05/16 08:59 Dose: 30 ml Lorazepam (Ativan Tab(*)) 1 mg PO Q6H PRN PRN Reason: ANXIETY Phenytoin Sodium (Dilantin Cap(*)) 300 mg PO BEDTIME [facility] Thiamine HCl (Vitamin B1 Iv*) 100 mg IV DAILY [facility] Last Admin: 03/05/16 09:00 Dose: 100 mg Vital Signs 03/04/16 03/04/16 03/04/16 19:23 20:00 22:00 Temperature 98.1 F Pulse Rate 74 Respiratory 18 16 20 Rate Blood Pressure 131/60 (mmHg) O2 Sat by Pulse 100 Oximetry 03/04/16 03/04/16 03/05/16 23:00 23:32 03:19 Temperature 98.2 F 100 F Pulse Rate 91 64 Respiratory 16 20 16 Rate Blood Pressure 117/58 106/51 (mmHg) O2 Sat by Pulse 97 100 Oximetry 03/05/16 03/05/16 03/05/16 07:34 07:50 11:54 Temperature 97.3 F 98.5 F Pulse Rate 78 76 Respiratory 19 16 16 Rate Blood Pressure 114/70 112/59 (mmHg) O2 Sat by Pulse 100 100 Oximetry Oxygen Devices in Use Now: None Appearance: Middle aged male lying in bed, NAD Eyes: No Scleral Icterus Ears/Nose/Mouth/Throat: Mucous Membranes Moist Respiratory: Symmetrical Chest Expansion and Respiratory Effort, Clear to Auscultation Cardiovascular: NL Sounds; No Murmurs; No JVD, RRR, No Edema Abdominal: NL Sounds; No Tenderness; No Distention Extremities: No Clubbing, Cyanosis Skin: No Rash or Ulcers, No Nodules or Sclerosis Neurological: - - seems somewhat distant, falls asleep while I am talking to him Result Diagrams: 03/05/16 05:38 03/05/16 05:38 Additional Lab and Data: . Microbiology and Other Data: Microbiology 02/27/16 11:32 Aerobic Blood Culture - Preliminary Blood Line No Growth Day 4 Anaerobic Blood Culture - Preliminary No Growth Day 4 Blood Culture - Final 02/27/16 11:30 Aerobic Blood Culture - Preliminary Blood Line No Growth Day 4 Anaerobic Blood Culture - Preliminary No Growth Day 4 Blood Culture - Final 02/28/16 10:30 Gram Stain - Final Sputum Sputum Culture - Final Staphylococcus Aureus Normal Gladys 02/27/16 13:30 Stool Occult Blood (ANA PAULA) - Final Stool 02/24/16 23:14 Nasal Screen MRSA (PCR)(ANA PUALA) - Final Nasal Mrsa Negative Assess/Plan/Problems-Billing Mr Case is a 45 yo M who has a h/o alcohol abuse and anxiety who presented to the ER unresponsive and was found to have a markedly elevated ammonia level and required intubation for airway protection. - Patient Problems (1) Seizure Current Visit: Yes Status: Acute Code(s): R56.9 - UNSPECIFIED CONVULSIONS SNOMED Code(s): 71431526 Comment: Pt had an episode 03/02/15 felt to be possibly a late EtOH withdrawal seizure. He had another event last evening. He was seen in consultation today by Dr. Glass who recommended starting dilantin 300mg qHS. No further EEG testing (2 negative evals this admission). He will need to follow up with Dr. Glass in the near future. (2) Hepatic encephalopathy Current Visit: Yes Status: Acute Code(s): K72.90 - HEPATIC FAILURE, UNSPECIFIED WITHOUT COMA SNOMED Code(s): 64405634 Comment: Ammonia level is up again today. He seems foggy. Will start rifaximin in addition to lactulose. Follow up ammonia level tomorrow AM. (3) Alcohol abuse Current Visit: Yes Status: Acute Code(s): F10.10 - ALCOHOL ABUSE, UNCOMPLICATED SNOMED Code(s): 38918702 Comment: Pt is going to be staying with his mom upon discharge. Encourage abstinence. (4) Anxiety Current Visit: Yes Status: Acute Code(s): F41.9 - ANXIETY DISORDER, UNSPECIFIED SNOMED Code(s): 60862548 Comment: Continue Gabapetin. (5) Anemia Current Visit: No Status: Chronic Priority: Medium Code(s): D64.9 - ANEMIA , UNSPECIFIED SNOMED Code(s): 294315932 Comment: Anemia is stable. Secondary to liver disease. (6) Thrombocytopenia Current Visit: No Status: Acute Code(s): D69.6 - THROMBOCYTOPENIA, UNSPECIFIED SNOMED Code(s): 489111091 Comment: Stable secondary to liver disease. (7) DVT prophylaxis Current Visit: Yes Status: Acute Code(s): KEV3518 - SNOMED Code(s): 356417513 Comment: Lovenox (8) Full code status Current Visit: Yes Status: Acute Code(s): Z78.9 - OTHER SPECIFIED HEALTH STATUS SNOMED Code(s): 043417235
[2016-03-05] MEDS ORDERED: Magnesium Sulfate 2 GM IV* 2 GM/50 ML BAG IVPB ONE (16:26)
[2016-03-05] MEDS: RiFAXimin* 550 MG TAB PO SCH (20:35)
[2016-03-05] MEDS ORDERED: Phenytoin CAP(*) 100 MG CAP.ER PO SCH (21:00)
--- NOTE | 2016-03-05 21:52 | CONS ---
CONSULTATION REPORT: DATE: 03/05/2016. PATIENT OF: Dr. Navas* and Dr. Rai. HISTORY OF PRESENT ILLNESS: This is a 45-year-old man I am asked to evaluate for seizures. He initially presented on 02/24/16 with unresponsiveness secondary to an acute hepatic encephalopathy and was treated for this and his encephalopathy cleared. However, since admission he has had 2 apparent seizures , the first was on 03/02/16 in the morning when he had a 30-second seizure with spontaneous resolution, was confused after. Because this happened in the setting of severe hepatic encephalopathy and alcohol withdrawal, no anticonvulsants were used. Last night he had another event, which was thought to be a seizure and was witnessed in part by Ysabel Betancur, who says the patient was rigid in the upper and lower extremities with lower mouth twitching. However, she also noticed that the patient seemed to be able to make eye contact intermittently during the seizure and Ativan was given with good effect. He was loaded with Dilantin. There has been no prior history of seizures. PAST MEDICAL HISTORY: In addition to the alcohol abuse, he has a history of anxiety. He is status post vein surgery. MEDICATIONS: He is on Neurontin 300 t.i.d. at home and in hospital medications include: 1. Lovenox 40 mg subcu q.24 hours. 2. Pepcid 20 mg b.i.d. 3. Lactulose 30 mg q.6 hours. 4. Ativan 1 mg p.r.n. anxiety. 5. Thiamine 100 mg IV daily. FAMILY HISTORY: There is no family history for seizures. REVIEW OF SYSTEMS: Negative other than alcohol related disease. He also notes tremor. PHYSICAL EXAM: On exam, temperature 97.3, pulse 78, respirations 16, blood pressure 114/70. He is alert and oriented. He had full extraocular movements other than 4 to 5 beats of nystagmus on lateral gaze. Cranial nerves otherwise intact. Fundi showed sharp discs. Motor exam revealed bilateral intention tremor, slight bilateral liver flap. He was able to walk independently but is slightly unsteady. Reflexes were 3 and equal. Head: Mild dysmetria. Strength 5/5. Chest: Clear. Cardiovascular: Regular rate and rhythm. Abdomen : Soft. DIAGNOSTIC STUDIES/LAB DATA: He has had one EEG that did not show any epileptiform potentials but did show triphasic waves while the patient was drowsy. He had another EEG while on propofol, which showed significant propofol effect at that point. He has had a head CT scan on admission, which showed no acute pathology. Labs include white count 6.2, hematocrit 26, platelets 73,000. INR 1.52. Most recent chemistries had a normal BMP other than creatinine of 0.47, calcium of 7.4, magnesium 1.3. His most recent ammonia today was 75. He had an ALT of 52 on 03/03/16 and AST of 120. His total protein was 5. Blue has had 2 seizures, the first one was late for an alcohol withdrawal seizure, though it is possible and that was one of the reasons why it was not treated at that time. However, the second seizure was even further out and the safest thing would be to have him on anticonvulsants at this time. I discussed this with both him and his mother and discussed; however, that even though the doctors yesterday thought that this was most likely a seizure and it is similar to how it was described as a little bit out in terms of it seemed he could make some eye contact during a generalized major motor seizure. It raises the possibility that this could have been stress related and not organically generated, it would be impossible to sort this out and the presumption at this time is that it is a seizure. Keppra would be a bad medicine for him because it would complicate depression, the Depakote could cause further liver damage, Dilantin has been started and it would be a reasonable medicine, although it has its own set of side effects. I discussed them with the patient including allergic reaction, signs of Dilantin toxicity and gum hypertrophy. There is long-term side effects also that was reviewed. It is possible it could affect his liver but this would be relatively unlikely. He will need Dilantin. I have discussed with Dr. Rai beginning Dilantin 300 a day at this point and he will need Dilantin levels including free Dilantin levels because his protein is low and it is a protein down medication. Followup is with Dr. Navas, I will be glad to follow up as well. He is not to drive for now and I discussed this with him, his mother, and Dr. 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 Thank you for sharing his case. [id number]/[facility] #: [id number] SHILPA
[2016-03-06 05:28] LABS: Hematocrit 30 % (42-52); Mean Corpuscular HGB Conc 33 g/dl (31-36); Mean Corpuscular Hemoglobin 37 pg (27-31); Mean Corpuscular Volume 113 fL (80-94); Mean Platelet Volume 11 um3 (7.4-10.4); Red Cell Distribution Width 18 % (10.5-15); White Blood Count 9.9 10^3/ul (3.5-10.8)
[2016-03-06 05:30] LABS: Comments Flag Yes
--- NOTE | 2016-03-06 07:34 | RAD ---
HISTORY: New onset seizure COMPARISONS: Head CT dated February 23, 2014 TECHNIQUE: The following sequences were obtained of the head: Sagittal T1-weighted images, axial T2-weighted images, axial FLAIR images, axial susceptibility weighted images, axial T1-weighted images, coronal T1, T2 and FLAIR images through the mesial temporal lobes. Additionally, axial diffusion-weighted images were obtained with calculated apparent diffusion coefficients. Additionally, sagittal and axial T1 weighted images with thin section coronal T1-weighted images through the mesial temporal lobes were obtained after contrast enhancement with a gadolinium-based intravenous contrast agent. FINDINGS: The study is limited by patient motion artifact. HEMORRHAGE/INFARCT: There is no hemorrhage or acute infarct. MASSES/SHIFT: There is no mass or shift. EXTRA-AXIAL SPACES/MENINGES: There are no extra-axial fluid collections. SULCI AND VENTRICLES: The sulci and ventricles are normal in size and position for the patient's stated age. CEREBRUM: There are few scattered small foci of elevated T2/FLAIR signal in the periventricular and subcortical white matter. The mesial temporal lobes are symmetric in size, architecture, and signal intensity. The collateral white matter bundles are symmetric. The mamillary bodies and temporal horns of the lateral ventricles are symmetric in size. There is no appreciable cortical dysplasia or heterotopia. BRAINSTEM: There are no focal parenchymal abnormalities. CEREBELLUM: There are no focal parenchymal abnormalities. The cerebellar tonsils are normal in size and position. SELLA: The sella is normal. PINEAL: The pineal region is clear. CP ANGLE/TEMPORAL BONES: The labyrinthine structures are grossly normal. VESSELS: Normal flow-voids are noted within the visualized vertebral vasculature. DIFFUSION ABNORMALITIES: There are no diffusion abnormalities. PARANASAL SINUSES/MASTOIDS: The paranasal sinuses are clear. There is trace left mastoid effusion. ORBITS: The orbits are unremarkable. BONES AND SOFT TISSUE: No bone or soft tissue abnormalities are noted. OTHER: There is no abnormal enhancement. IMPRESSION: 1. LIMITED STUDY. 2. THERE ARE FEW, SCATTERED, SMALL, NONENHANCING FOCI OF ELEVATED T2/FLAIR SIGNAL WITHIN THE PERIVENTRICULAR AND SUBCORTICAL WHITE MATTER. WHILE THESE FINDINGS ARE NONSPECIFIC, THEY CAN BE SEEN IN ASSOCIATION WITH MIGRAINE HEADACHE, THE SEQUELA OF PREVIOUS INFECTION OR INFLAMMATION, AND CHRONIC SMALL VESSEL ISCHEMIA. DEMYELINATING DISEASE IS ALSO WITHIN THE DIFFERENTIAL, BUT IS CONSIDERED LESS LIKELY IN THE ABSENCE OF THE APPROPRIATE CLINICAL PRESENTATION. 3. THERE IS NO APPRECIABLE CORTICAL DYSPLASIA OR HETEROTOPIA.
[2016-03-06] MEDS: Thiamine IV* 100 MG/ML 2 ML VIAL IV SCH (07:46)
[2016-03-06] MEDS: Enoxaparin(*) 40 MG/0.4 ML SYR SUBCUT SCH (07:47)
[2016-03-06] MEDS: Famotidine TAB* 20 MG SCH (07:47)
[2016-03-06] MEDS: RiFAXimin* 550 MG TAB PO SCH (07:47)
[2016-03-06] MEDS: Folic Acid TAB* 1 MG PO SCH (07:47)
[2016-03-06 13:27] VITALS: BP 122/106
--- NOTE | 2016-03-06 13:41 | PN ---
Subjective Date of Service: 03/06/16 Interval History: Pt is feeling well. He is anxious to go home. He denies any pain. No SOB. He has been having BMs today. Objective Active Medications: Enoxaparin Sodium (Lovenox(*)) 40 mg SUBCUT Q24H [facility] Last Admin: 03/06/16 07:47 Dose: 40 mg Famotidine (Pepcid Tab*) 20 mg .SEE ORDER BID [facility] Last Admin: 03/06/16 07:47 Dose: 20 mg Folic Acid (Folvite Tab*) 1 mg PO DAILY [facility] Last Admin: 03/06/16 07:47 Dose: 1 mg Heparin Sodium (Porcine) (Heparin Flush Picc/Ml/Cvc(*)) 1 - 3 ml FLUSH 0600, 1800 [facility] PRN Reason: Protocol Last Admin: 03/06/16 04:59 Dose: Not Given Lactulose (Lactulose*) 30 ml PO Q6H [facility] Last Admin: 03/06/16 09:54 Dose: 30 ml Phenytoin Sodium (Dilantin Cap(*)) 300 mg PO BEDTIME [facility] Last Admin: 03/05/16 20:34 Dose: 300 mg Rifaximin (Xifaxan*) 550 mg PO BID [facility] Last Admin: 03/06/16 07:47 Dose: 550 mg Thiamine HCl (Vitamin B1 Iv*) 100 mg IV DAILY [facility] Last Admin: 03/06/16 07:46 Dose: 100 mg Vital Signs 03/05/16 03/05/16 03/05/16 16:05 20:00 20:40 Temperature 98.7 F 98.3 F Pulse Rate 69 84 Respiratory 18 18 18 Rate Blood Pressure 122/60 112/58 (mmHg) O2 Sat by Pulse 100 100 Oximetry 03/05/16 03/06/16 03/06/16 23:41 04:06 07:41 Temperature 98.3 F 98.8 F 97.5 F Pulse Rate 80 76 74 Respiratory 16 16 18 Rate Blood Pressure 135/65 120/62 125/66 (mmHg) O2 Sat by Pulse 100 100 100 Oximetry 03/06/16 03/06/16 07:55 11:18 Temperature 98.4 F Pulse Rate 69 Respiratory 16 18 Rate Blood Pressure 122/106 (mmHg) O2 Sat by Pulse 100 Oximetry Oxygen Devices in Use Now: None Appearance: Middle aged male standing up in his room, NAD Eyes: No Scleral Icterus Ears/Nose/Mouth/Throat: Mucous Membranes Moist Respiratory: Symmetrical Chest Expansion and Respiratory Effort, Clear to Auscultation - diminished breath sounds in all lung pack Cardiovascular: NL Sounds; No Murmurs; No JVD, RRR, No Edema Abdominal: NL Sounds; No Tenderness; No Distention Extremities: No Clubbing, Cyanosis Skin: No Rash or Ulcers, No Nodules or Sclerosis Neurological: - - much more alert Result Diagrams: 03/06/16 05:09 03/05/16 05:38 Additional Lab and Data: . Microbiology and Other Data: Microbiology 02/27/16 11:32 Aerobic Blood Culture - Preliminary Blood Line No Growth Day 4 Anaerobic Blood Culture - Preliminary No Growth Day 4 Blood Culture - Final 02/27/16 11:30 Aerobic Blood Culture - Preliminary Blood Line No Growth Day 4 Anaerobic Blood Culture - Preliminary No Growth Day 4 Blood Culture - Final 02/28/16 10:30 Gram Stain - Final Sputum Sputum Culture - Final Staphylococcus Aureus Normal Gladys 02/27/16 13:30 Stool Occult Blood (ANA PAULA) - Final Stool 02/24/16 23:14 Nasal Screen MRSA (PCR)(ANA PAULA) - Final Nasal Mrsa Negative Assess/Plan/Problems-Billing Mr Case is a 45 yo M who has a h/o alcohol abuse and anxiety who presented to the ER unresponsive and was found to have a markedly elevated ammonia level and required intubation for airway protection. - Patient Problems (1) Seizure Current Visit: Yes Status: Acute Code(s): R56.9 - UNSPECIFIED CONVULSIONS SNOMED Code(s): 54039038 Comment: Pt had an episode 03/02/15 felt to be possibly a late EtOH withdrawal seizure. He had another event last evening. He was seen in consultation by Dr. Glass who recommended starting dilantin 300mg qHS. Will continue the current dose of dilantin. Check dilantin level 03/09/16. I have asked that the patient follow up with Dr. Glass in 1-2 weeks. (2) Hepatic encephalopathy Current Visit: Yes Status: Acute Code(s): K72.90 - HEPATIC FAILURE, UNSPECIFIED WITHOUT COMA SNOMED Code(s): 70072694 Comment: Ammonia level is improved today after starting rifaximin. He was supposed to be taking both lactulose and rifaximin but he states he stopped the meds prior to his prior admission. Follow up ammonia level 03/09/16. (3) Alcohol abuse Current Visit: Yes Status: Acute Code(s): F10.10 - ALCOHOL ABUSE, UNCOMPLICATED SNOMED Code(s): 80732765 Comment: Pt is going to be staying with his mom upon discharge. Encourage abstinence. (4) Anxiety Current Visit: Yes Status: Acute Code(s): F41.9 - ANXIETY DISORDER, UNSPECIFIED SNOMED Code(s): 94495472 Comment: Continue Gabapetin. (5) Anemia Current Visit: Yes Status: Chronic Code(s): D64.9 - ANEMIA, UNSPECIFIED SNOMED Code(s): 854962099 Comment: H/H improved today. Continue to monitor. (6) Thrombocytopenia Current Visit: Yes Status: Acute Code(s): D69.6 - THROMBOCYTOPENIA, UNSPECIFIED SNOMED Code(s): 780633020 Comment: Stable-secondary to liver disease. (7) DVT prophylaxis Current Visit: Yes Status: Acute Code(s): XTG2505 - SNOMED Code(s): 863059374 Comment: Lovenox (8) Full code status Current Visit: Yes Status: Acute Code(s): Z78.9 - OTHER SPECIFIED HEALTH STATUS SNOMED Code(s): 753876219 Status and Disposition: d/c home
--- NOTE | 2016-03-07 13:05 | DS ---
DISCHARGE SUMMARY: DATE OF ADMISSION: 02/24/16 DATE OF DISCHARGE: 03/06/16 PRIMARY CARE PROVIDER: Dr. Navas. NEUROLOGIST: Dr. Glass. PRINCIPAL DIAGNOSES: 1. Unresponsiveness secondary to severe hepatic encephalopathy with need for intubation for airway protection. 2. Alcohol abuse and withdrawal. 3. Seizure x2. 4. Chronic anemia and thrombocytopenia - likely secondary to liver disease. 5. Anxiety. DISCHARGE MEDICATIONS: 1. Melatonin 6 mg p.o. q.h.s. p.r.n. insomnia. 2. Thiamine 100 mg p.o. daily. 3. Rifaximin 550 mg p.o. b.i.d. 4. Phenytoin 300 mg p.o. q.h.s. 5. Lactulose 30 mL p.o. four times a day. 6. Folic acid 1 mg p.o. daily. HOSPITAL COURSE: Mr. Nielson is a 45-year-old male with longstanding history of alcohol abuse, who presented to the emergency room after being found unresponsive. The patient had had dinner with his mother and son the evening prior to admission and was seen normal at approximately midnight prior to admission. On the day of admission, his family tried to wake him up in the early afternoon and when he would not awake, EMS was contacted. The patient was brought to the emergency room for evaluation. He was intubated to protect his airway due to him not responding to any noxious stimuli. The patient was admitted for evaluation of his unresponsive state. His ammonia level on presentation to the emergency room was elevated at 206. The patient received lactulose and over the course of the next several days, his ammonia level trended down. The patient was able to be liberated from mechanical ventilation. It is suspected that his unresponsive episode was likely related to his severe hepatic encephalopathy. As soon as the patient was transferred from the ICU to the floor, he did, however, have a 30-second generalized what appeared to be a tonic-clonic seizure. The patient was several days out from his last alcohol consumption, so it was felt that this was late for possible alcohol withdrawal seizure; however, this is what the seizure was attributed to. Again, on the evening of 03/04/16, the patient had another possible seizure. On 03/05/16, the patient was seen in consultation by Dr. Glass, who recommended initiating Dilantin 300 mg p.o. q.h.s. This was done as we could clearly not exclude seizure as the cause of his symptoms during these events despite there being questions of him tracking the provider while he was having seizure activity. The patient's mental status has improved throughout the course of his hospitalization. He does still seem to be somewhat in a fog, however, this is improving. His ammonia level is 35 on the day of discharge. The patient is now requiring both lactulose and rifaximin to keep his ammonia level down. The patient and his mom had been instructed that he is to take these without interruption to continue to maintain his normal ammonia level. Additionally, the patient has been instructed that he should not be at work until he follows up with Dr. Glass especially given the possible seizure activity. 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 The patient has been encouraged to abstain from alcohol use. He will be staying with his mom upon discharge from the hospital. I have explained to her that it is imperative that he quit drinking. The patient was also found to be anemic during this hospitalization. He was also thrombocytopenic. This is likely related to his chronic liver disease. FOLLOWUP CONCERNS: The patient is being discharged home today, 03/06/16. He is to follow up with Dr. Navas in the next 4 to [address] Glass in the next 1 to 2 weeks. ACTIVITY LEVEL: As tolerated. DIET: Regular. CONDITION ON DISCHARGE: Stable. TIME SPENT: Thirty-five minutes was spent discharging this patient. CC: Dr. Navas; Dr. Glass* [id number]/[facility] #: [id number] MTDD
[2016-03-09 13:32] LABS: RBC Folate HCT 23.7 % LOW; RBC Folate Hemolysate 419.2 ng/mL; Red Blood Cell Folate 1769 ng/mL
== END 2016-03-06 14:30 | disposition home health service (06) | DRG 951 ==
LOC: ED 15:38 → ICU 19:06 → MED 03-01 10:56 → MEDTELE 03-02 09:51
PROVIDERS: ADMIT Internal Medicine Critical Care Medicine; ATTEND Hospitalist
PROC: 0BH17EZ Insertion of Endotracheal Airway into Trachea, Via Natural or Artificial Opening (ICD-10-PCS; principal; 2016-02-24)
PROC: 02HV33Z Insertion of Infusion Device into Superior Vena Cava, Percutaneous Approach (ICD-10-PCS; 2016-02-24)
PROC: 5A1955Z Respiratory Ventilation, Greater than 96 Consecutive Hours (ICD-10-PCS; 2016-02-24)
PROC: 0DH67UZ Insertion of Feeding Device into Stomach, Via Natural or Artificial Opening (ICD-10-PCS; 2016-02-24)
PROC: 3E0G76Z Introduction of Nutritional Substance into Upper GI, Via Natural or Artificial Opening (ICD-10-PCS; 2016-02-24)
PROC: 4A00X4Z Measurement of Central Nervous Electrical Activity, External Approach (ICD-10-PCS; 2016-02-25)
PROC: 4A00X4Z Measurement of Central Nervous Electrical Activity, External Approach (ICD-10-PCS; 2016-03-01)
DX: K70.40 Alcoholic hepatic failure without coma (principal); F10.239 Alcohol dependence with withdrawal, unspecified; R56.9 Unspecified convulsions; D69.6 Thrombocytopenia, unspecified; E83.42 Hypomagnesemia; E83.51 Hypocalcemia; F41.9 Anxiety disorder, unspecified; F32.9 Major depressive disorder, single episode, unspecified; F17.210 Nicotine dependence, cigarettes, uncomplicated; R79.89 Other specified abnormal findings of blood chemistry; K70.10 Alcoholic hepatitis without ascites; D53.9 Nutritional anemia, unspecified; K70.30 Alcoholic cirrhosis of liver without ascites; Y90.3 Blood alcohol level of 60-79 mg/100 ml
CPT/HCPCS: 36415; 70450; 70553; 71010; 74177; 80048; 80053; 80301; 80320; 80329; 81003; 81015; 82140; 82247; 82272; 82550; 82607; 82803; 83605; 83690; 83735; 83880; 84075; 84100; 84443; 84450; 84460; 84484; 85014; 85018; 85025; 85027; 85610; 86140; 87040; 87070; 87077; 87186; 87205; 87641; 93005; 94002; 94003; 94760; 95816; 99406; A9270-GY; A9579; C1751; G0479; G0480; J0330; J1165; J1650; J2060; J2543; J2704; J2930; J3411; J3430; J3475; J3480; Q9967